=== PATIENT | male | born 1935 | race Caucasian/White ===

== ENCOUNTER 2020-10-03 00:16 | Inpatient (IN) | payer MEDICARE, BC, SELFPAY ==
[2020-10-03] VITALS (24 sets, daily range): BP systolic 117–197; BP diastolic 66–92; PULSE 66–114; RESP 12–27; TEMP 36.4–43; O2SAT 91–100; BMI 24.4; BMI 23.2
--- NOTE | 2020-10-03 00:17 | ECG_ITS ---
APPROVED REPORT Exam: Resting ECG HR:98 bpm ECG Measurements Heart Rate 98 AXES WY 144 P 48 QRSd 64 QRS 27 QT 352 T 62 QTc 449 Conclusion Normal sinus rhythm Normal ECG Electronically signed by : Carlton Bazzi, 10/03/2020 20:47:07
--- NOTE | 2020-10-03 00:28 | HMH.EDGENADL ---
ED Disposition Clinical Impression: SBO (small bowel obstruction) Disposition: Admitted As Inpatient Condition on Discharge: Good Instructions: DI for Diarrhea and Traveler's Diarrhea -- Adult, DI for Diarrhea and Traveler's Diarrhea -- Child, DI for Nausea -- Adult, DI for Nausea -- Child - Critical Care Critical Care Time: No Attestation: On , the high probability of a clinically significant, sudden or life threatening deterioration of the following system(s) required my full and direct attention, intervention and personal management. The time I documented below is in addition to time spent performing reported procedures but includes the following listed in this critical care notation. Medical Decision Making - Medical Records Medical records reviewed: Yes: I reviewed the patient's medical records. - [place] Inquiry Pt receiving controlled substance: No Vital Signs: 10/03/20 00:17 Temperature 98.8 F Temperature Source Oral Pulse Rate [Right] 98 H Respiratory Rate 16 Blood Pressure [Right Arm] 144/88 H Blood Pressure Mean [Right Arm] 106 Blood Pressure Source [Right Arm] Automatic Cuff Blood Pressure Position [Right Arm] Sitting 02 Sat by Pulse Oximetry 99 Oxygen Delivery Method Room Air - Lab Data Lab Results 10/03/20 00:15: WBC 14.1 H, RBC 5.17, Hgb 15.1, Hct 47.3, MCV 91.5, MCH 29.3, MCHC 32.0, RDW 13.3, Plt Count 545 H, MPV 7.3 L, Neut % (Auto) 76.0, Lymph % (Auto) 16.6, Yell % (Auto) 6.4, Eos % (Auto) 0.6, Baso % (Auto) 0.4, Neut # (Auto) 10.7 H, Lymph # (Auto) 2.4, Yell # (Auto) 0.9, Eos # (Auto) 0.1, Baso # (Auto) 0.1 10/03/20 00:15: Sodium 136, Potassium 4.4, Chloride 93 L, Carbon Dioxide 29, Anion Gap 18.4 H, BUN 38 H, Creatinine 1.90 H, Estimated Creat Clear 31, Estimated GFR 34 L, Est GFR ( Amer) 41 L, Glucose 161 H, Calcium 10.7 H, Total Bilirubin 0.8, AST 31, ALT 20, Alkaline Phosphatase 188 H, Total Protein 9.5 H, Albumin 5.1 H, Globulin 4.4 H, Albumin/Globulin Ratio 1.2, Lipase 80 Result diagrams: 10/03/20 00:15 10/03/20 00:15 Orders (Tests/Meds): ED MEDICATIONS Generic Name Dose Route Start Last Admin Trade Name Freq PRN Reason Stop Dose Admin Lactated Ringer's 1,000 mls @ 999 mls/hr 10/03/20 00:30 10/03/20 00:28 Lactated Ringer's 1000 Ml Bag IV 10/03/20 01:30 999 mls/hr .Q1H1M BRYAN Administration Lactated Ringer's 1,000 mls @ 999 mls/hr 10/03/20 00:45 10/03/20 00:37 Lactated Ringer's 1000 Ml Bag IV 10/03/20 01:45 Not Given .Q1H1M BRYAN Discontinued Medications Generic Name Dose Route Start Last Admin Trade Name Freq PRN Reason Stop Dose Admin Morphine Sulfate 4 mg 10/03/20 00:27 10/03/20 00:28 Morphine 4mg/Ml Syringe IV 10/03/20 00:28 4 mg ONCE ONE Administration Ondansetron HCl 4 mg 10/03/20 00:27 10/03/20 00:28 Ondansetron 4mg/2ml Vial IV 10/03/20 00:28 4 mg ONCE ONE Administration Ondansetron HCl 4 mg 10/03/20 00:31 10/03/20 00:37 Ondansetron 4mg/2ml Vial IV 10/03/20 00:32 Not Given ONCE ONE ORDERS Category Date Time Status CT abdomen pelvis wo con Stat Cat Scan 10/03/20 01:02 Taken Medical Decision Narrative: In summary this is an 84-year-old male presenting for abdominal pain. Patient has had symptoms for the past several days since Thursday. Patient states that he has not had a bowel movement or been passing gas. Due to his history of abdominal surgeries there is concern for small bowel obstruction. Patient had medications including bolus, IV morphine for pain control, IV ondansetron for nausea control ordered. Patient had CT abdomen with IV contrast as well as basic lab work ordered. On repeat assessment, patient was found to have an injury at 1.9, last creatinine not difficult to be obtained. Patient CT scan demonstrates small bowel obstruction with transition point in right lower quadrant. There is also concern for possible neoplasm with mass at the splenic flexure. Patient has no history
[2020-10-03 00:41] LABS: Basophils # 0.1 K/mm3 (0-0.2); Basophils % 0.4 % (0.1-2.0); Eosinophils # 0.1 K/mm3 (0.0-0.4); Eosinophils % 0.6 % (0.1-12.0); Hematocrit 47.3 % (42.0-52.0); Hemoglobin 15.1 g/dL (14.1-18.0); Lymphocytes # 2.4 K/mm3 (0.7-4.5); Lymphocytes % 16.6 % (10-50); Mean Corpuscular Hemoglobin 29.3 pg (27.0-31.2); Mean Corpuscular Volume 91.5 fl (80-94); Mean Platelet Volume 7.3 fl (7.4-10.4); Monocytes # 0.9 K/mm3 (0.1-1.0); Monocytes % 6.4 % (1.7-9.3); Neutrophils # 10.7 K/mm3 (1.8-7.8); Platelet Count 545 K/mm3 (142-424); Red Blood Count 5.17 M/mm3 (4.60-6.20); Red Cell Distribution Width 13.3 % (11.5-17.5); White Blood Count 14.1 K/mm3 (4.8-10.8)
[2020-10-03 00:46] LABS: Alanine Aminotransferase 20 U/L (12-78); Albumin Level 5.1 g/dl (3.5-5.0); Albumin/Globulin Ratio 1.2 (1.1-1.8); Alkaline Phosphatase 188 U/L (38-126); Anion Gap 18.4 mEq/L (5-15); Aspartate Amino Transferase 31 U/L (17-59); Bilirubin,Total 0.8 mg/dl (0.2-1.3); Blood Urea Nitrogen 38 mg/dl (9-20); Calcium 10.7 mg/dl (8.4-10.2); Carbon Dioxide 29 mmol/L (22.0-30.0); Chloride 93 mmol/L (98-107); Creatinine Clearance Estimated 31 mL/min (50-200); Estimated Glomerular Filt Rate 34 ml/min (>60); GFR (African American) 41 ML/MIN (>60); Globulin 4.4 g/dL (1.3-3.2); Glucose 161 mg/dl (74-100); Lipase 80 U/L (23-300); Potassium 4.4 mmoL/L (3.5-5.1); Sodium 136 mmol/L (136-145); Total Protein,Serum 9.5 g/dl (6.3-8.2)
--- NOTE | 2020-10-03 01:02 | CT_ITS ---
PROCEDURE: CT ABDOMEN PELVIS WO CON CLINICAL INDICATION: N/V w/ abd pain COMPARISON: No exams were available for comparison TECHNIQUE: Axial images obtained with sagittal and coronal reformats. All CT scans at the facility use one or more dose reduction, viz: automated exposure control, ma/kV adjustment per patient size (including targeted exams where dose is matched to indication, i.e. head), or iterative reconstruction technique. FINDINGS: Lower thorax: Emphysematous changes are seen in the lower lung paz, there is a large calcified granuloma posterior basilar segment right lower lobe. There is no pleural fluid. There is mild generalized cardiomegaly and there is coronary artery calcification. ABDOMEN: Liver: The liver is normal in size and there are no focal masses. There few scattered calcifications. Gallbladder: Nondistended. No radio opaque stones. Pancreas: No masses or peripancreatic fluid collections. Spleen: unremarkable Adrenals: unremarkable Kidneys/ureters: The kidneys are normal in size and no calculi and there is no obstructive uropathy. ABDOMEN & PELVIS: Stomach bowel: The stomach is prominently distended with fluid and there are scattered foci of high density possibly representing ingested antacids. There is a prominent diffuse dilatation of the duodenal sweep and proximal small bowel loops there are essentially normal caliber small bowel loops in the right lower quadrant and a suspected transition zone in the right lower quadrant consistent with a developing mechanical small bowel obstruction. There are postsurgical changes of the cecum probably secondary to a previous appendectomy. There is moderate stool in the cecum and ascending colon. The transverse and descending colon are somewhat decompressed. There is a possible mass splenic flexure of the colon with distortion of the lumen. There are scattered diverticuli of the lower descending and especially sigmoid colon but there is no evidence diverticulitis. Peritoneum: There is a small right inguinal hernia likely containing some fluid and or mesentery but no bowel.. Lymph nodes: No enlarged lymph nodes apparent. Vasculature: There is diffuse arthrosclerotic calcification of lower abdominal aorta there is no aneurysm. Bones: There are mild degenerate changes lower lumbar spine. PELVIS: Reproductive: unremarkable Bladder: Nondistended. No obvious stones or masses. The prostate is mildly enlarged. Appendix: Suspected appendectomy IMPRESSION: Fluid-filled dilated proximal and mid small bowel loops with probable transition zone right lower quadrant suggesting developing mechanical small bowel obstruction. 1. Possible mass splenic flexure of colon versus a focal area of colitis and I somewhat favor the former. 2. Prominent diverticulosis lower descending and especially sigmoid colon without definite evidence of diverticulitis. Dictated by: Dr. Avelino Seals MD 10/03/2020 08:41 Dr. Avelino Seals MD in [place] 10/03/2020 08:41
--- NOTE | 2020-10-03 01:47 | PC.NURSE ---
speaking with Dr. Ceron
--- NOTE | 2020-10-03 01:49 | PC.NURSE ---
Notified house of admission
--- NOTE | 2020-10-03 02:06 | XR_ITS ---
PROCEDURE: XR KUB CLINICAL INDICATION: NG tube placement COMPARISON: CT CT ABDOMEN PELVIS WO CON from 10/03/2020 FINDINGS: There is an NG tube seen entering the stomach. The lung paz are well expanded and appear clear of infiltrate. Cardiac size is normal. Scattered tiny foci of high density seen the stomach and distal small bowel likely due to ingested ant acids.. There are mildly dilated loops of small bowel in the mid lower abdomen. The lateral right side of the abdomen is cut off from the field of view. There is no evidence of free air. IMPRESSION: Mildly abnormal bowel gas pattern possibly secondary to a gastroenteritis Dictated by: Dr. Avelino Seals MD 10/03/2020 08:53 Dr. Avelino Seals MD in [place] 10/03/2020 08:53
[2020-10-03 02:25] LABS: Coronavirus 19 IgG Antibody Negative (Negative); Coronavirus 19 IgM Antibody Negative (Negative)
--- NOTE | 2020-10-03 04:32 | PC.NURSE ---
Pt is A&Ox4. Lung sounds clear t/o; tolerating RA appropriately. NG tube in place and remains on intermittent suctioning. NG tube is draining cloudy, dark green drainage at this time. Lower lt and rt quad hypoactive bowel sounds and active bowel sounds in upper lt and rt quads. Pt abdomen is distended and non-tender. Pt has not c/o abdominal pain thus far this shift. No other acute changes or complaints at this time.
--- NOTE | 2020-10-03 06:55 | XR_ITS ---
PROCEDURE: XR ACUTE ABDOMEN SERIES CLINICAL INDICATION: sbo COMPARISON: CT scan abdomen and pelvis 10/03/2020 FINDINGS: The chest film shows clear lung paz bilaterally. There is a NG tube seen descending the esophagus with the tip in the upper portion of the stomach directed toward the greater curvature. Abdominal films show more prominent gaseous dilatation of small bowel loops and seen on the film earlier in the day. There is moderate stool in the cecum. There is a Mata catheter at the base of the urinary bladder. There is no free air. IMPRESSION: Interval progression of dilated small bowel loops somewhat worrisome for developing mechanical small bowel obstruction Dictated by: Dr. Avelino Seals MD 10/03/2020 09:38 Dr. Avelino Seals MD in [place] 10/03/2020 09:38
--- NOTE | 2020-10-03 07:17 | P.CONPHA_ITS ---
[facility] Pharmacy VTE Monitoring - Patient Demographics Admission date: 10/03/20 Report Date: 10/03/20 Time: 07:17 Allergies/Adverse Reactions: Patient Allergies No Known Allergies Allergy (Verified 10/03/20 00:22) Height: 1.73 m Weight: 69.541 kg Patient Problems: Current Active Problems SBO (small bowel obstruction) (Acute) - VTE Risk Labs: VTE Related Lab Results Hgb 15.1 g/dL (14.1-18.0) 10/03/20 00:15 Hct 47.3 % (42.0-52.0) 10/03/20 00:15 Plt Count 545 K/mm3 (142-424) H 10/03/20 00:15 BUN 38 mg/dl (9-20) H 10/03/20 00:15 Creatinine 1.90 mg/dl (0.66-1.25) H 10/03/20 00:15 Estimated Creat Clear 31 mL/min (50-200) 10/03/20 00:15 Was VTE Risk Assessment Performed: Yes VTE Score: 3 VTE Risk Level: Low Risk Clinical Trial Participant: No - Prophylaxis VTE Prophylaxis Ordered?: Yes Types of VTE Prophylaxis: TEDS Knee High
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
[2020-10-03 08:05] LABS: Basophils # 0.1 K/mm3 (0-0.2); Basophils % 0.4 % (0.1-2.0); Eosinophils # 0.2 K/mm3 (0.0-0.4); Eosinophils % 1.4 % (0.1-12.0); Hematocrit 40.8 % (42.0-52.0); Lymphocytes % 15.1 % (10-50); Mean Corpuscular HGB Conc 31.3 g/dL (31.8-35.4); Mean Corpuscular Hemoglobin 28.3 pg (27.0-31.2); Mean Corpuscular Volume 90.4 fl (80-94); Monocytes # 1.1 K/mm3 (0.1-1.0); Monocytes % 8.1 % (1.7-9.3); Neutrophils # 9.9 K/mm3 (1.8-7.8); Platelet Count 454 K/mm3 (142-424); Red Blood Count 4.52 M/mm3 (4.60-6.20); Red Cell Distribution Width 13.1 % (11.5-17.5); White Blood Count 13.2 K/mm3 (4.8-10.8)
[2020-10-03 08:10] LABS: Chloride 99 mmol/L (98-107); Potassium 4.1 mmoL/L (3.5-5.1); Sodium 137 mmol/L (136-145)
[2020-10-03 08:13] LABS: Anion Gap 12.1 mEq/L (5-15); Blood Urea Nitrogen 36 mg/dl (9-20); Calcium 9.8 mg/dl (8.4-10.2); Carbon Dioxide 30 mmol/L (22.0-30.0); Creatinine Clearance Estimated 35 mL/min (50-200); Estimated Glomerular Filt Rate 42 ml/min (>60); GFR (African American) 50 ML/MIN (>60); Glucose 119 mg/dl (74-100)
[2020-10-03 08:21] LABS: Hemoglobin 12.8 g/dL (14.1-18.0)
--- NOTE | 2020-10-03 14:32 | ECG_ITS ---
APPROVED REPORT Exam: Resting ECG HR:76 bpm ECG Measurements Heart Rate 76 AXES AK 156 P 26 QRSd 58 QRS -6 QT 386 T 14 QTc 434 Conclusion Normal sinus rhythm Low voltage QRS Borderline ECG Electronically signed by : Carlton Bazzi, 10/03/2020 20:46:09
--- NOTE | 2020-10-03 14:44 | PC.NURSE ---
1440 Pt leaving department at this time with surgery personnel for procedure.
--- NOTE | 2020-10-03 17:12 | SUR.OPER ---
1645: Update to family in waiting room, per Dr Ceron, Tissue is very thin and fragile, working carefully, so this will be long procedure. Patient is stable. Will be out with another update in about an hour.
--- NOTE | 2020-10-03 17:49 | SUR.OPER ---
1746: Update to family-Resection of partial small bowel and partial greater omentum. Patient is stable. Procedure will continue for atleast another hour.
--- NOTE | 2020-10-03 17:58 | HMH.ANESCL ---
[facility] Anesthesia Checklist - Patient Identification Patient Identification: Arm Band, Verbal (Name & ) - Structural Data Admitted From: Inpatient Planned Operative Procedure/s: Exploratory laparotomy Consent for Planned Operative Procedure(s) Verified: Yes Verified Documents: Surgical Consent, History and Physical - NPO Status Verified Time NPO: 00:00 - Chart Verification Results Verified: CBC, BMP - Additional verifications Anesthesia Reactions: No - Airway Assessment C-Spine Mobility Assessed: Yes TMJ Mobility Assessed: Yes Dentition: Poor Dentition - Neurological Assessment Level of Consciousness: Awake, Alert, Appropriate, Follows Commands Hx Seizures: No Numbness or tingling in extremities: No - Anesthesia Plan Anesthesia Risk discussed: Yes Anesthesia Plan: Verified ASA Class: II (Emergent) Anesthesia Type: General [facility] History I have reviewed the patient's past medical history: Yes Medical History: Reports:: Cancer (skin cancer), Gastroesophageal Reflux Disease(GERD), Hyperlipidemia Denies:: Diabetes Mellitus Type 1, Diabetes Mellitus Type 2 *Have you ever received a pneumonia vaccine?: No *Have you received a flu vaccine this season?: Yes Other Medical History: Reports: Arthritis Anesthesia experience/problems:: none Other Surgeries: Yes: Cancer Surgery, Colostomy, Hernia Repair, Skin Cancer Excision Fractures: Yes (left hand, pinky finger) - *Social History Last grade of school completed: GED Smoking Status: Never smoker Alcohol Intake: never Substance Use Type: denies use *Occupational Status:: retired Housing: house Household Members: spouse *Travel in the last 8 weeks: None Family Hx:: Cancer, Coronary Artery Disease
--- NOTE | 2020-10-03 20:06 | HMH.ANESI ---
[facility] Anesthesia Record Part I Intake, IV Amount: 1,400 Estimated blood loss (mL): 75 Urine output (mL): 250 Blood Products used (#): none Blood Pressure: 184/88 SaO2: 94 Pulse Rate: 114 Respiratory Rate: 20 Temperature: 97.6 F Patient is:: Awake, Drowsy, Nasal O2, Stable Stable to PACU at:: 20:00
--- NOTE | 2020-10-03 20:16 | HMH.OPNOTE ---
Date of procedure: 10/03/20 Pre-op Diagnosis:: Small bowel obstruction Post-op Diagnosis:: Same Procedure performed:: Exploratory laparotomy Extensive lysis of adhesions Partial small bowel resection with primary anastomosis Surgeon:: Eusebio Ceron MD CLAIMS PROCESSOR:: Edson Villa Anesthesia: GETA Estimated blood loss (mL): 75 Operative findings:: Extensive dense adhesions throughout abdomen. The adhesions were exceptionally dense and no area was spared. The adhesions were between small bowel/anterior abdominal wall, small bowel/omentum, small bowel/colon, and small bowel/small bowel. Portion of mid small bowel exceptionally friable with some apparent mild early ischemic changes secondary to obstruction. Midportion of small bowel with spontaneous rents at time of minimal maneuvering with concomitant soilage with enteric contents 2 separate portions of fairly tight stricture in the distal small bowel through separate openings within omentum. Partial omentectomy completed Operative note:: After informed consent was obtained the patient was taken to the operating room and placed in the supine position. General anesthesia was induced and his abdomen was prepped and draped in a sterile fashion. A midline laparotomy incision was made through the prior scar. The abdominal cavity was carefully entered. Multiple loops of densely adherent small bowel were noted along the midline and throughout the entire abdomen. Extensive dissection with Metzenbaum scissors was utilized to carefully take down these loops. Careful blunt dissection was also utilized. Multiple interloop adhesions were also taken down as they were also exceptionally dense and no area was spared. Adhesions between the omentum and small bowel and adhesions between the small bowel and colon were also carefully taken down. A midportion of small bowel was somewhat friable and slightly dusky and this was felt to be most likely secondary to a combination of limited blood supply and need to maneuver the tissue as part of the adhesiolysis. A few separate areas of this friable tissue develop spontaneous rents with minimal maneuvering. Some enteric contents were spilled; however, this was quickly controlled with running suture. The abdominal cavity was thoroughly irrigated. As the dissection continued 2 separate areas of the distal small bowel were found to be additional points of obstruction (essentially internal hernias through omentum were noted). These were carefully taken down and the decision was made to proceed with a partial omentectomy as all of this tissue was quite friable/thickened. The Enseal device was utilized to complete the partial omentectomy. Dissection continued from the ligament of Treitz distally with no additional areas of injury or definitive additional areas of obstruction noted. A [id number] anastomosis utilizing a EMIL stapling device and a TX device for closure of the common otomy was completed at the small bowel resection site. Imbrication with interrupted 4-0 Nurolon was completed at the crotch and along the staple margin to improve hemostasis. No active bleeding was noted. The somewhat dilated small bowel was then returned to the abdominal cavity. Once again, the entire abdominal cavity was thoroughly irrigated with warm saline. Fascia was then reapproximated with #2 Novafil in a running fashion. The skin was partially closed with interrupted 4-0 nylon and 2 areas were left open for packing secondary to intra-abdominal spillage of enteric contents. Condition: stable Disposition: PACU Specimens:: Partial small bowel resection Partial greater omentum Complications:: No immediate
--- NOTE | 2020-10-03 23:22 | PC.NURSE ---
2114 BLENDING COORDINATOR pump set up, verified with maile Martin educated on only he is to push button and overdose risks
[2020-10-04] VITALS (16 sets, daily range): BP systolic 121–146; BP diastolic 57–77; PULSE 72–99; RESP 15–20; TEMP 36.6–37.2; O2SAT 92–98; BMI 24.1
[2020-10-04 03:17] LABS: Microscopic,Cath URINE MICROSCOPIC (MICROSCOPIC)
[2020-10-04 03:21] LABS: Appearance,Urine/Cath CLEAR (Clear); Bilirubin,Cath Negative (Negative); Blood, Urine/Cath 2+ (Negative); Color,Urine/Cath YELLOW (Yellow); Glucose,Urine/Cath (UA) Negative (Negative); Ketones,Urine/Cath Negative (Negative); Leukocyte Esterase,Cath Negative (Negative); Nitrate,Cath Negative (Negative); Protein,Urine/Cath 1+ (Negative); Specific Gravity, Urine/Cath 1.025 (1.005-1.030); Urobilinogen,Cath 0.2 EU/dl (0.2)
[2020-10-04 03:25] LABS: Bacteria,Urine/Cath TRACE /lpf; Mucus,Urine/Cath 1+ /lpf; WBC,Urine/Cath Occasional #/hpf (0-3)
--- NOTE | 2020-10-04 05:24 | PC.NURSE ---
pt has rested on and off since returning to floor, AxOx4, pt has been educated several times on the [employer] pump and how to use it, pt does verbalize understanding, inspiratory and expiratory rhonchi noted on auscultation of lungs, remains on 2L NC with O2 sats 91-96%, pt has not complained of SOA, N/V/D, HR has been 86-95, IS at bedside and pt has been educated on the use of it, dressing in place on abdomen, C/D/I, SCUDS in place
--- NOTE | 2020-10-04 05:36 | PC.NURSE ---
ritter catheter patent and draining cloudy dark urine
--- NOTE | 2020-10-04 06:11 | PC.NURSE ---
SHEEP FARM MANAGER pump cleared, pt had 13 completed, 9 denied, with 14 mg total being used, including 1 mg loading dose
[2020-10-04 06:44] LABS: Basophils % 0.2 % (0.1-2.0); Hematocrit 38.7 % (42.0-52.0); Hemoglobin 12.4 g/dL (14.1-18.0); Lymphocytes # 0.8 K/mm3 (0.7-4.5); Lymphocytes % 4.9 % (10-50); Mean Corpuscular HGB Conc 32.1 g/dL (31.8-35.4); Mean Corpuscular Hemoglobin 29.4 pg (27.0-31.2); Mean Corpuscular Volume 91.7 fl (80-94); Mean Platelet Volume 7.6 fl (7.4-10.4); Monocytes % 6.3 % (1.7-9.3); Neutrophils # 13.6 K/mm3 (1.8-7.8); Neutrophils % 88.5 % (37.0-80.0); Platelet Count 378 K/mm3 (142-424); Red Blood Count 4.22 M/mm3 (4.60-6.20); Red Cell Distribution Width 13.5 % (11.5-17.5); White Blood Count 15.4 K/mm3 (4.8-10.8)
[2020-10-04 06:47] LABS: Chloride 101 mmol/L (98-107); Potassium 4.4 mmoL/L (3.5-5.1); Sodium 137 mmol/L (136-145)
[2020-10-04 06:50] LABS: Anion Gap 10.4 mEq/L (5-15); Blood Urea Nitrogen 32 mg/dl (9-20); Carbon Dioxide 30 mmol/L (22.0-30.0); Creatinine Clearance Estimated 34 mL/min (50-200); Estimated Glomerular Filt Rate 39 ml/min (>60); GFR (African American) 47 ML/MIN (>60); Glucose 124 mg/dl (74-100)
[2020-10-04 06:51] LABS: Calcium 8.2 mg/dl (8.4-10.2)
[2020-10-04 06:52] LABS: MANUAL DIFFERENTIAL MANUAL DIFFERENTIAL (MANUAL DIFF)
--- NOTE | 2020-10-04 06:59 | HMH.GSPN ---
Subjective Narrative: feels OK Progress Note: A&P (1) SBO (small bowel obstruction) Status: Acute Assessment and plan: Overall, doing fairly well status post exploratory laparotomy, extensive lysis of adhesions, and partial small bowel resection. Continue nasogastric decompression Ambulate DC Mata (2) Abnormal CT scan, colon Status: Acute Exam Vital signs and Labs for Last 24 Hours: Temp Pulse Resp BP Pulse Ox 97.8 F 86 15 130/69 92 L 10/04/20 05:55 10/04/20 05:55 10/04/20 05:55 10/04/20 05:55 10/04/20 05:55 Laboratory Results - last 24 hr 10/03/20 07:45: WBC 13.2 H, RBC 4.52 L, Hgb 12.8 L D, Hct 40.8 L, MCV 90.4, MCH 28.3, MCHC 31.3 L, RDW 13.1, Plt Count 454 H, MPV 7.0 L, Neut % (Auto) 75.0, Lymph % (Auto) 15.1, [place] % (Auto) 8.1, Eos % (Auto) 1.4, Baso % (Auto) 0.4, Neut # (Auto) 9.9 H, Lymph # (Auto) 2.0, [place] # (Auto) 1.1 H, Eos # (Auto) 0.2, Baso # (Auto) 0.1 10/03/20 07:45: Sodium 137, Potassium 4.1, Chloride 99, Carbon Dioxide 30, Anion Gap 12.1, BUN 36 H, Creatinine 1.60 H, Estimated Creat Clear 35, Estimated GFR 42 L, Est GFR ( Amer) 50 L D, Glucose 119 H D, Calcium 9.8 10/04/20 03:10: Urine Color Yellow, Urine Appearance Clear, Urine pH 6.0, Ur Specific [place] 1.025, Urine Protein 1+, Urine Glucose (UA) Negative, Urine Ketones Negative, Urine Blood 2+, Urine Nitrate Negative, Urine Bilirubin Negative, Urine Urobilinogen 0.2, Ur Leukocyte Esterase Negative, Urine RBC 5-10, Urine WBC Occasional, Urine Bacteria Trace 10/04/20 06:13: WBC 15.4 H, RBC 4.22 L, Hgb 12.4 L, Hct 38.7 L, MCV 91.7, MCH 29.4, MCHC 32.1, RDW 13.5, Plt Count 378, MPV 7.6, Neut % (Auto) 88.5 H, Lymph % (Auto) 4.9 L, [place] % (Auto) 6.3, Eos % (Auto) 0.0 L, Baso % (Auto) 0.2, Neut # (Auto) 13.6 H, Lymph # (Auto) 0.8, [place] # (Auto) 1.0, Eos # (Auto) 0.0, Baso # (Auto) 0.0 10/04/20 06:13: Sodium 137, Potassium 4.4, Chloride 101, Carbon Dioxide 30, Anion Gap 10.4, BUN 32 H, Creatinine 1.70 H, Estimated Creat Clear 34, Estimated GFR 39 L, Est GFR ( Amer) 47 L, Glucose 124 H, Calcium 8.2 L D I & O for Last 24 hours: Intake & Output 10/01/20 10/02/20 10/03/20 10/04/20 11:59 11:59 11:59 11:59 Intake Total 409 / 409 2698 / 2698 Output Total 750 / 750 1650 / 1650 Balance -341 / -341 1048 / 1048 Weight 153 lb 5 oz 159 lb 4 oz - Constitutional no acute distress - *Routine Respiratory Exam Absent: respiratory distress - *Routine Cardiovascular Exam Present: RRR - *Routine Abdominal Exam Present: soft Comments: Dressing in place. No erythema.
[2020-10-04 09:01] LABS: Lymphocytes % 7 % (10-50); Monocytes % 4 % (2-9); Neutrophils % 81 % (42-76); Platelet Estimate Normal; RBC Morphology Normal; Total Cells Counted 100
--- NOTE | 2020-10-04 12:32 | PC.NURSE ---
NEW MORPHINE SYRINGE SET UP IN MANAGER NET PUMP Roman STEVENS RN.
--- NOTE | 2020-10-04 13:00 | PC.NURSE ---
PT WALKED FROM HIS BED TO ROOM 206 AND BACK TO HIS ROOM WITH A ROLLING WALKER AND STANDBY ASSIST. PT TOLERATED WELL.
--- NOTE | 2020-10-04 16:58 | PC.NURSE ---
PT WALKED FROM HIS BED TO ROOM 205 AND BACK WITH ROLLING WALKER AND STANDBY ASSIST. STEADY GAIT NOTED. PT TOLERATED WELL.
--- NOTE | 2020-10-04 17:38 | PC.NURSE ---
CLEARED HUMAN RESOURCES VICE PRESIDENT PUMP WITH Jitendra SCHRADER RN. 10.6MG CLEARED FROM PUMP.
--- NOTE | 2020-10-04 18:09 | PC.NURSE ---
A&OX4. PT HAS TOLERATED 2L NC WELL THROUGHOUT SHIFT. RESPIRATIONS REGULAR AND UNLABORED. LUNG SOUNDS BILATERALLY CLEAR. NO COUGH NOTED. PT WAS EDUCATED ON HOW TO USE INCENTIVE SPIROMETER AND ENCOURAGED TO USE IT 10 TIMES EVERY HOUR WHILE AWAKE. 700 NOTED THE PT'S BEST. ACTIVE BOWEL SOUNDS HEARD IN ALL 4 QUADRANTS. SOFT AND TENDER ABDOMEN. DRESSING NOTED TO ABDOMEN. CDI. HAND EDUCATIONAL ADVISER EQUAL. +2 PULSES NOTED THROUGHOUT. SCUDS IN PLACE. PT SAT UP TO THE CHAIR FOR ABOUT A HOUR TODAY. PT AMBULATED TWICE WITH THIS NURSE AND TOLERATED WELL. STEADY GAIT NOTED. NG TUBE IN PLACE WITH GREENISH YELLOW CONTENTS NOTED IN SUCTION CANISTER. ENDOCRINOLOGY NURSE PUMP IN PLACE. PT HAS REPORTED PAIN OF A 4-5 THROUGHOUT SHIFT. PT HASN'T NEEDED ANY ADDITIONAL PAIN MEDS THUS FAR. PT HAS TOLERATED ICE CHIPS WELL. PT HAD SEVERAL FAMILY MEMBERS VISIT TODAY. PT REPORTS NO BM OR FLATUS PASSED. PT IS CURRENTLY LYING IN BED RESTING. BED IN LOWEST POSITION. CALL LIGHT WITHIN REACH. VSS. WILL CONTINUE TO MONITOR.
[2020-10-05] VITALS (13 sets, daily range): BP systolic 117–155; BP diastolic 45–83; PULSE 66–100; RESP 16–20; TEMP 36.6–37.6; O2SAT 1–100; BMI 25.0
--- NOTE | 2020-10-05 05:18 | PC.NURSE ---
no acute changes since prior assessment, pt has rested on and off t/o shift, pain has been well controlled with LOGISTICS ADMINISTRATOR, dressing change completed, no redness noted to midline incision, IS at bedside and pt has been educated on using it, has remained on 2L NC t/o shift, O2 sats 92-100%, room air sat obtained and found to be 92%, lungs CTA, no complaints of SOA, N/V/D, BS active in upper quadrants and hypoactive in lower quadrants
--- NOTE | 2020-10-05 06:45 | PC.NURSE ---
COSTUME DIRECTOR pump cleared, pt received 15 mg, denied 8 times, also had 200 mL out from NG tube, brownish, greenish in color
[2020-10-05 06:48] LABS: Basophils % 0.1 % (0.1-2.0); Eosinophils # 0.1 K/mm3 (0.0-0.4); Eosinophils % 0.5 % (0.1-12.0); Hematocrit 34.9 % (42.0-52.0); Hemoglobin 11.2 g/dL (14.1-18.0); Lymphocytes % 9.3 % (10-50); Mean Corpuscular HGB Conc 32.1 g/dL (31.8-35.4); Mean Corpuscular Hemoglobin 29.6 pg (27.0-31.2); Mean Platelet Volume 7.3 fl (7.4-10.4); Monocytes # 0.6 K/mm3 (0.1-1.0); Monocytes % 5.1 % (1.7-9.3); Neutrophils # 9.5 K/mm3 (1.8-7.8); Platelet Count 334 K/mm3 (142-424); Red Cell Distribution Width 13.5 % (11.5-17.5); White Blood Count 11.2 K/mm3 (4.8-10.8)
[2020-10-05 06:52] LABS: MANUAL DIFFERENTIAL MANUAL DIFFERENTIAL (MANUAL DIFF)
[2020-10-05 06:55] LABS: Chloride 101 mmol/L (98-107); Potassium 4.1 mmoL/L (3.5-5.1); Sodium 135 mmol/L (136-145)
[2020-10-05 06:58] LABS: Anion Gap 8.1 mEq/L (5-15); Blood Urea Nitrogen 27 mg/dl (9-20); Carbon Dioxide 30 mmol/L (22.0-30.0); Creatinine Clearance Estimated 46 mL/min (50-200); Estimated Glomerular Filt Rate 53 ml/min (>60); GFR (African American) 64 ML/MIN (>60)
[2020-10-05 06:59] LABS: Calcium 8.4 mg/dl (8.4-10.2); Glucose 100 mg/dl (74-100)
[2020-10-05 07:04] LABS: Lymphocytes % 12 % (10-50); Monocytes % 5 % (2-9); Neutrophils % 74 % (42-76); Platelet Estimate Normal; RBC Morphology Normal; Total Cells Counted 100
--- NOTE | 2020-10-05 17:01 | P.PN_ITS ---
Subjective Narrative: Mr. Hutchins is an 84-year-old male status post exploratory laparotomy with enterolysis and small bowel resection. Today is postoperative day #2. Reports feeling relatively well. No nausea or emesis. NG tube remains in place with clear green aspirate. No flatus or bowel movement. No significant complaints. Progress Note: A&P (1) SBO (small bowel obstruction) Status: Acute (2) Abnormal CT scan, colon Status: Acute Assessment and Plan for All Diagnoses:: 1. Small bowel obstruction. Status post exploratory laparotomy with enterolysis and small bowel resection. Postoperative day #2. Doing well. Expect slow recovery of bowel function. NG tube to remain in place. Continue supportive postoperative care. Exam Vital signs and Labs for Last 24 Hours: Temp Pulse Resp BP Pulse Ox 97.9 F 100 H 20 148/83 H 98 10/05/20 15:18 10/05/20 15:18 10/05/20 15:18 10/05/20 15:18 10/05/20 15:18 Laboratory Results - last 24 hr 10/05/20 06:09: WBC 11.2 H D, RBC 3.80 L, Hgb 11.2 L, Hct 34.9 L, MCV 92.0, MCH 29.6, MCHC 32.1, RDW 13.5, Plt Count 334, MPV 7.3 L, Neut % (Auto) 85.0 H, Lymph % (Auto) 9.3 L, [place] % (Auto) 5.1, Eos % (Auto) 0.5, Baso % (Auto) 0.1, Neut # (Auto) 9.5 H, Lymph # (Auto) 1.0, [place] # (Auto) 0.6, Eos # (Auto) 0.1, Baso # (Auto) 0.0, Total Counted 100, Neutrophils % (Manual) 74, Band Neutrophils % 9.0 H, Lymphocytes % (Manual) 12, Monocytes % (Manual) 5, Platelet Estimate Normal, RBC Morphology Normal 10/05/20 06:09: Sodium 135 L, Potassium 4.1, Chloride 101, Carbon Dioxide 30, Anion Gap 8.1, BUN 27 H, Creatinine 1.30 H D, Estimated Creat Clear 46, Estimated GFR 53 L, Est GFR ( Amer) 64 D, Glucose 100, Calcium 8.4 I & O for Last 24 hours: Intake & Output 10/03/20 10/04/20 10/05/20 10/06/20 11:59 11:59 11:59 11:59 Intake Total 409 / 409 2698 / 2698 4332 / 4332 0 / 0 Output Total 750 / 750 1900 / 1900 1055 / 1055 500 / 500 Balance -341 / -341 798 / 798 3277 / 3277 -500 / -500 Weight 69.541 kg 72.235 kg 74.843 kg 75 kg - Constitutional Comments: Pleasant. No distress. - *Routine Abdominal Exam Comments: Soft. Dressing dry. Distended. Appropriately tender.
--- NOTE | 2020-10-05 17:46 | PC.NURSE ---
PATIENT A&O X4, LUNGS DIMINISHED, PULSES EQUAL. PATIENT ABDOMEN IS DISTENDED, PATIENT COMPLAINS OF NO PAIN WHEN ASSESSING ABDOMEN. THIS RN REMOVED OLD DRESSING, CLEANED WOUNDS WITH NS, PACKED BOTH OPEN WOUNDS WITH KERLIX SOAKED IN NS, COVERED WITH 4X4 AND MEDIPORE TAPE TO SECURE. PATIENT TOLERATED WELL. PATIENT HAS BEEN FATIQUED FOR MOST OF THIS RN SHIFT. PATIENT REFUSED AMBULATION. THIS RN EXPLAINED THE IMPORTANCE OF AMBULATION TO HELP WITH INTESTINE MOBILITY. THIS RN EDUCATED PATIENT THE IMPORTANCE OF USING HIS IS TO HELP PREVENT PNEUMONIA. PATIENT VERBALIZED AN UNDERSTANDING. NO NEW CONCERNS AT THIS TIME.
[2020-10-06] VITALS (18 sets, daily range): BP systolic 146–181; BP diastolic 62–95; PULSE 67–91; RESP 15–22; TEMP 36.6–37.3; O2SAT 91–97; BMI 25.1
--- NOTE | 2020-10-06 04:51 | PC.NURSE ---
Patient is resting comfortably in bed. Neuro: Alert x 5. No c/o pain. Pupils are equal, as are lining brusher and pulses. Cardiac: Patient has been normotensive. Sinus tach intermittently. Pulm: Patient transitioned to room air at roughly 0200 as he was satting 97% on 1 l. Currently satting 94%. Will encourage IS when patient wakes. GI: patient remains npo except ice chips. No n/v/d. No gas reported by patient. Bowel sounds are hypoactive. NG tube connected to low continuous suction, suction is at 75%. Gastric output for shift has been 125 cc of dark green bile. Amount noted on tape applied to canister. : Patient voids using urinal at bedside. Patient stands independently to use urinal. Roughly 300 cc of clear urine. Skin: dressing changed tonight. Wound is stapled with two areas that are left open and packed with gauze. Border dressing and tape applied. No drainage noted since dressing change. Pain pump in place. Patient has only used 1 mg of morphine this shift. Reports pain as a 2 at the worst. No issues or concerns with patient. Hes very pleasant and anxious to start getting better. Will continue to monitor patient.
--- NOTE | 2020-10-06 07:00 | PC.NURSE ---
MACHINE SHOP LEAD MAN pump cleared. Patient only us 1 mg of morphine during shift.
[2020-10-06 07:09] LABS: Basophils % 0.2 % (0.1-2.0); Eosinophils # 0.3 K/mm3 (0.0-0.4); Eosinophils % 2.2 % (0.1-12.0); Hematocrit 33.6 % (42.0-52.0); Hemoglobin 10.8 g/dL (14.1-18.0); Lymphocytes % 8.9 % (10-50); Mean Corpuscular HGB Conc 32.3 g/dL (31.8-35.4); Mean Corpuscular Hemoglobin 29.4 pg (27.0-31.2); Mean Corpuscular Volume 91.3 fl (80-94); Mean Platelet Volume 7.7 fl (7.4-10.4); Monocytes # 0.6 K/mm3 (0.1-1.0); Monocytes % 5.1 % (1.7-9.3); Neutrophils # 9.4 K/mm3 (1.8-7.8); Neutrophils % 83.6 % (37.0-80.0); Platelet Count 338 K/mm3 (142-424); Red Blood Count 3.68 M/mm3 (4.60-6.20); Red Cell Distribution Width 13.3 % (11.5-17.5); White Blood Count 11.3 K/mm3 (4.8-10.8)
[2020-10-06 07:19] LABS: Anion Gap 11.7 mEq/L (5-15); Blood Urea Nitrogen 19 mg/dl (9-20); Calcium 8.4 mg/dl (8.4-10.2); Carbon Dioxide 26 mmol/L (22.0-30.0); Chloride 100 mmol/L (98-107); Creatinine Clearance Estimated 51 mL/min (50-200); Estimated Glomerular Filt Rate 58 ml/min (>60); GFR (African American) 70 ML/MIN (>60); Glucose 76 mg/dl (74-100); Potassium 3.7 mmoL/L (3.5-5.1); Sodium 134 mmol/L (136-145)
--- NOTE | 2020-10-06 09:13 | HMH.GSPN ---
Subjective Patient reports: feels better, no flatus Narrative: POD#3 Progress Note: A&P (1) SBO (small bowel obstruction) Status: Acute Assessment and plan: Overall, doing well status post exploratory laparotomy with extensive lysis of adhesions and partial small bowel resection. Await return of bowel function Continue to increase ambulation Continue Zosyn for now secondary to intraoperative soilage with enteric contents (2) Abnormal CT scan, colon Status: Acute Exam Vital signs and Labs for Last 24 Hours: Temp Pulse Resp BP Pulse Ox 98.7 F 67 20 151/95 H 93 L 10/06/20 08:00 10/06/20 08:00 10/06/20 08:00 10/06/20 08:00 10/06/20 08:00 Laboratory Results - last 24 hr 10/06/20 06:17: WBC 11.3 H, RBC 3.68 L, Hgb 10.8 L, Hct 33.6 L, MCV 91.3, MCH 29.4, MCHC 32.3, RDW 13.3, Plt Count 338, MPV 7.7, Neut % (Auto) 83.6 H, Lymph % (Auto) 8.9 L, [place] % (Auto) 5.1, Eos % (Auto) 2.2, Baso % (Auto) 0.2, Neut # (Auto) 9.4 H, Lymph # (Auto) 1.0, [place] # (Auto) 0.6, Eos # (Auto) 0.3, Baso # (Auto) 0.0 10/06/20 06:17: Sodium 134 L, Potassium 3.7, Chloride 100, Carbon Dioxide 26, Anion Gap 11.7, BUN 19 D, Creatinine 1.20, Estimated Creat Clear 51, Estimated GFR 58 L, Est GFR ( Amer) 70, Glucose 76, Calcium 8.4 I & O for Last 24 hours: Intake & Output 10/03/20 10/04/20 10/05/20 10/06/20 11:59 11:59 11:59 11:59 Intake Total 409 / 409 2698 / 2698 4332 / 4332 1670 / 1670 Output Total 750 / 750 1900 / 1900 1055 / 1055 1450 / 1450 Balance -341 / -341 798 / 798 3277 / 3277 220 / 220 Weight 153 lb 5 oz 159 lb 4 oz 165 lb 166 lb - Constitutional no acute distress - *Routine Respiratory Exam Absent: respiratory distress - *Routine Cardiovascular Exam Present: RRR - *Routine Abdominal Exam Present: soft
--- NOTE | 2020-10-06 12:19 | PC.NURSE ---
CONTACTED DR. HIDALGO REGARDING ELEVATED BP 25MG METOPROLOL PO ORDERED AND FAXED TO PHARMACY. WILL CONTINUE TO MONITOR.
--- NOTE | 2020-10-06 13:52 | PC.NURSE ---
TOLERATED AMBULATION IN HALLWAY WITH STANDBY ASSISTANCE WITH STAFF. PT AMBULATED UP AND DOWN HALLWAY X2 WITH NO COMPLAINTS.
--- NOTE | 2020-10-06 13:58 | PC.NURSE ---
CONTACTED DR HIDALGO REGARDING PT SUSTAINED HYPERTENSION.
--- NOTE | 2020-10-06 19:23 | PC.NURSE ---
CLEARED DIVIDEND DEPOSIT ENTRY CLERK, 7.7 MG ADMIN, 350 NG TUBE OUTPUT
[2020-10-07] VITALS (17 sets, daily range): BP systolic 141–183; BP diastolic 60–93; PULSE 58–85; RESP 16–20; TEMP 36.6–37.1; O2SAT 91–95; BMI 24.9
--- NOTE | 2020-10-07 06:08 | PC.NURSE ---
pt has had no acute changes. vss. blood pressure remains elevated but has had improvement. no prn med given this shift for hypertension. NG is at 55 in the right nare. drainage is brown green. iv infusing per order. dressing was changed with minimal pain voiced. pt has been using chemistry associate and was educated on pain control. pt has been belching but has not passed any flatulence. vss. call light in reach. will continue to monitor
--- NOTE | 2020-10-07 07:00 | PC.NURSE ---
cleared microsoft exchange administrator pump 5 mg used this shift
--- NOTE | 2020-10-07 09:36 | PC.NURSE ---
PT IS NPO BUT IS BEING PROVIDED ICE CHIPS BY STAFF
--- NOTE | 2020-10-07 10:15 | HMH.GSPN ---
Subjective Patient reports: no new complaints, no flatus Narrative: Postop day #4 Progress Note: A&P (1) SBO (small bowel obstruction) Status: Acute Assessment and plan: Overall, doing fairly well status post exploratory laparotomy with partial small bowel resection. Await return of bowel function (2) Abnormal CT scan, colon Status: Acute Assessment and plan: Colonoscopy as soon as possible once he has recovered postoperatively. (3) Postoperative hypertension Status: Acute Assessment and plan: Continue labetalol for now. Continue to closely monitor. Exam Vital signs and Labs for Last 24 Hours: Temp Pulse Resp BP Pulse Ox 98.6 F 58 L 18 161/92 H 94 L 10/07/20 07:59 10/07/20 07:59 10/07/20 07:59 10/07/20 07:59 10/07/20 07:59 I & O for Last 24 hours: Intake & Output 10/04/20 10/05/20 10/06/20 10/07/20 11:59 11:59 11:59 11:59 Intake Total 2698 / 2698 4332 / 4332 1670 / 1670 0 / 0 Output Total 1900 / 1900 1055 / 1055 1900 / 1900 2155 / 2155 Balance 798 / 798 3277 / 3277 -230 / -230 -2155 / -2155 Weight 159 lb 4 oz 165 lb 166 lb 164 lb 7 oz Narrative: Labetalol ordered yesterday secondary to hypertension - Constitutional no acute distress - *Routine Respiratory Exam Absent: respiratory distress - *Routine Cardiovascular Exam Present: RRR - *Routine Abdominal Exam Present: soft
--- NOTE | 2020-10-07 11:36 | PC.NURSE ---
patient passed gas at this time
--- NOTE | 2020-10-07 11:59 | HMH.ACPN ---
Internal Medicine - PN: Subj *Date: 10/07/20 *Time: 11:59 Exam Vital signs and Labs for Last 24 Hours: Temp Pulse Resp BP Pulse Ox 97.9 F 64 20 166/71 H 93 L 10/07/20 11:35 10/07/20 11:35 10/07/20 11:35 10/07/20 11:35 10/07/20 11:35 I & O for Last 24 hours: Intake & Output 10/04/20 10/05/20 10/06/20 10/07/20 23:59 23:59 23:59 23:59 Intake Total 3749 / 3749 3551 / 3551 0 / 0 0 / 0 Output Total 1205 / 1305 2150 / 2150 1530 / 1530 1375 / 1375 Balance 2544 / 2444 1401 / 1401 -1530 / -1530 -1375 / -1375 Weight 72.235 kg 75 kg 75.296 kg 74.588 kg Assessment and Plan (1) SBO (small bowel obstruction) Status: Acute Category: Medical Code(s): K56.609 - Unspecified intestinal obstruction, unspecified as to partial versus complete obstruction (2) Abnormal CT scan, colon Status: Acute Category: Medical Code(s): R93.3 - Abnormal findings on diagnostic imaging of other parts of digestive tract (3) Postoperative hypertension Status: Acute Category: Medical Code(s): I97.3 - Postprocedural hypertension The patient's infection will respond to the chosen ABx?: Yes Is the patient receiving the right drug, dose, and route?: Yes Could a more targeted ABx be ordered?: No
--- NOTE | 2020-10-07 17:53 | PC.NURSE ---
HE IS AOX4, ABLE TO MAKE NEEDS KNOWN TO STAFF, MOTOR TEACHER STILL IN PLACE AT THIS TIME, PT STATES ADEQUATE PAIN CONTROL HAS BEEN MAINTAINED T/O SHIFT, HE HAS TOLERATED RA WELL WITH NO COMPLAINTS, HAS AMBULATED ORDERED, NG HAS BEEN REMOVED FROM WALL SUCTION PER MD ORDERS AND PLACED TO DRAINAGE BAG ORDERED BY DR HIDALGO, PT DENIES N/V, SMALL AMOUNT OF DRAINAGE NOTED IN DRAINAGE BAG, PT STATES THAT HE HAS PASSED GAS BUT NO BM THUS FAR, HE STATES THAT HE HAS ONLY MINIMAL PAIN WITH AMBULATION, STILL NO DRAINAGE NOTED TO DSG. PT BLOOD PRESSURE HAS REMAINED MILDLY HYPERTENSIVE T/O SHIFT, URINE OUTPUT HAS BEEN APPROPRIATE T/O SHIFT. NO NEEDS AT THIS TIME, WILL CONTINUE TO MONITOR.
[2020-10-08] VITALS (14 sets, daily range): BP systolic 145–188; BP diastolic 69–90; PULSE 62–82; RESP 16–20; TEMP 36.2–36.8; O2SAT 92–96; BMI 24.3
--- NOTE | 2020-10-08 04:33 | PC.NURSE ---
pt has had no acute changes. dressing was changed no s/s of infection noted. pt ambulated full length of hallway with walker and standby assist. ng 55 to right nare. ng to drainage bag with green-yellow drainage. iv patent and infusing per order. no residual noted with each residual check. no complaints of N/V. pt states having left shoulder neck discomfort and requested arthritis cream. a warm blanket was applied to the area and pt states relief from this. welding teacher vial changed this shift. vss. call light in reach. will continue to monitor pt condition
--- NOTE | 2020-10-08 05:37 | PC.NURSE ---
9.8 mg cleared from automation specialist
--- NOTE | 2020-10-08 07:09 | HMH.GSPN ---
Subjective Patient reports: no new complaints (Nasogastric tube to drain bag for 24 hours. No nausea or vomiting.), flatus Narrative: He states that he has had 2 episodes of flatus. Progress Note: A&P (1) SBO (small bowel obstruction) Status: Acute Assessment and plan: Overall, doing well status post exploratory laparotomy with extensive lysis of adhesions and partial small bowel resection. His expected postoperative ileus is improving. He has had 2 episodes of flatus. No nausea or emesis with nasogastric tube to drain bag. Remove nasogastric tube Clear liquids cautiously (2) Abnormal CT scan, colon Status: Acute Assessment and plan: Ongoing follow-up with colonoscopy once recovered from surgical intervention (3) Postoperative hypertension Status: Acute Assessment and plan: Slightly improved. As needed labetalol ordered; however, he is requiring less medication. Exam Vital signs and Labs for Last 24 Hours: Temp Pulse Resp BP Pulse Ox 98.0 F 76 17 157/83 H 96 10/08/20 06:00 10/08/20 06:00 10/08/20 06:00 10/08/20 06:00 10/08/20 06:00 I & O for Last 24 hours: Intake & Output 10/05/20 10/06/20 10/07/20 10/08/20 11:59 11:59 11:59 11:59 Intake Total 4332 / 4332 1670 / 1670 0 / 0 1295 / 1295 Output Total 1055 / 1055 1900 / 1900 2455 / 2455 1875 / 1875 Balance 3277 / 3277 -230 / -230 -2455 / -2455 -580 / -580 Weight 165 lb 166 lb 164 lb 7 oz 160 lb 9 oz - Constitutional no acute distress - *Routine Respiratory Exam Absent: respiratory distress - *Routine Cardiovascular Exam Present: RRR - *Routine Abdominal Exam Present: soft
[2020-10-08 07:12] LABS: Basophils # 0.1 K/mm3 (0-0.2); Basophils % 0.8 % (0.1-2.0); Eosinophils # 0.5 K/mm3 (0.0-0.4); Eosinophils % 5.4 % (0.1-12.0); Hematocrit 33.4 % (42.0-52.0); Hemoglobin 11.1 g/dL (14.1-18.0); Lymphocytes # 1.5 K/mm3 (0.7-4.5); Lymphocytes % 15.5 % (10-50); Mean Corpuscular HGB Conc 33.4 g/dL (31.8-35.4); Mean Corpuscular Hemoglobin 29.4 pg (27.0-31.2); Mean Corpuscular Volume 88.1 fl (80-94); Mean Platelet Volume 7.5 fl (7.4-10.4); Monocytes # 0.9 K/mm3 (0.1-1.0); Monocytes % 9.4 % (1.7-9.3); Neutrophils # 6.5 K/mm3 (1.8-7.8); Neutrophils % 68.9 % (37.0-80.0); Platelet Count 381 K/mm3 (142-424); Red Blood Count 3.79 M/mm3 (4.60-6.20); Red Cell Distribution Width 13.1 % (11.5-17.5); White Blood Count 9.5 K/mm3 (4.8-10.8)
[2020-10-08 07:34] LABS: Anion Gap 14.4 mEq/L (5-15); Blood Urea Nitrogen 12 mg/dl (9-20); Calcium 8.4 mg/dl (8.4-10.2); Carbon Dioxide 26 mmol/L (22.0-30.0); Chloride 98 mmol/L (98-107); Creatinine Clearance Estimated 59 mL/min (50-200); Estimated Glomerular Filt Rate 72 ml/min (>60); GFR (African American) 87 ML/MIN (>60); Glucose 60 mg/dl (74-100); Potassium 3.4 mmoL/L (3.5-5.1); Sodium 135 mmol/L (136-145)
[2020-10-08 07:47] LABS: Procalcitonin 3.81 ng/mL (0.0-2.0)
--- NOTE | 2020-10-08 14:21 | DIET.NUTRFU ---
Addendum entered by Alexandra Shah 10/10/20 16:16: Diet advanced to full liquid, pt tolerating well. Weight down 2#. No BM. Nutritional supplements added to diet order TID. Original Note: Pt reports he is feeling well and has been passing flatulence, no BM yet. Weight up 7# from admit. Pt has been educated on diet for post small bowel resection/SBO and encouraged to reach out with questions/concerns post dc. Continuing to monitor.
--- NOTE | 2020-10-08 20:05 | PC.NURSE ---
Pt has been pleasant and cooperative this shift. A&O X4. No complaints of pain. WINDOWS MIGRATION TECHNICIAN pump in place. 21 MG Morphine delivered this shift. Pt ambulates with stand-by assistance. Pt uses the urinal to void clear, yellow urine without issue. No BM. Lungs CTA. No edema noted. Abdominal incision packed X2 with saline soaked gauze, covered with ABD pad and tape. Pt has drank 240 ML of apple juice this shift and has had 240 ML of water. 20 G peripheral IV in the LT AC is patent and infusing LR @ 150 ML/HR. VSS. Call light within reach. Will continue to monitor.
[2020-10-09] VITALS (11 sets, daily range): BP systolic 138–178; BP diastolic 74–85; PULSE 70–87; RESP 16–20; TEMP 36.4–37; O2SAT 90–96; BMI 24.3
--- NOTE | 2020-10-09 06:28 | PC.NURSE ---
Pt has slept very little this shift, noted to have quirky and friendly affect. pt jokes easily with staff, nad noted pt has been sitting up in bed most of the shift. iv began leaking at appro 230 this am. new iv started by Solomon Mott RN 4 sticks total for attempt. pt has had no complaints this shift. will continue to monitor.
--- NOTE | 2020-10-09 08:25 | HMH.GSPN ---
Subjective Patient reports: no new complaints Narrative: Nasogastric tube out for 24 hours. No nausea or vomiting. He states that it feels like things are still moving through . Progress Note: A&P (1) SBO (small bowel obstruction) Status: Acute Assessment and plan: Overall, slowly improving status post exploratory laparotomy with extensive lysis of adhesions and partial small bowel resection. His postoperative ileus seems to be improving. Clear liquid diet (2) Abnormal CT scan, colon Status: Acute (3) Postoperative hypertension Status: Acute (4) Postoperative ileus Status: Acute Assessment and plan: Slowly improving Exam Vital signs and Labs for Last 24 Hours: Temp Pulse Resp BP Pulse Ox 98.2 F 79 17 148/81 H 94 L 10/09/20 02:00 10/09/20 02:00 10/09/20 02:00 10/09/20 02:00 10/09/20 02:00 I & O for Last 24 hours: Intake & Output 10/06/20 10/07/20 10/08/20 10/09/20 11:59 11:59 11:59 11:59 Intake Total 1670 / 1670 0 / 0 1295 / 1295 206 / 2061 Output Total 1900 / 1900 2455 / 2455 2675 / 2675 1670 / 1670 Balance -230 / -230 -2455 / -2455 -1380 / -1380 391 / 391 Weight 166 lb 164 lb 7 oz 160 lb 9 oz 160 lb 1 oz - Constitutional no acute distress - *Routine Respiratory Exam Absent: respiratory distress - *Routine Cardiovascular Exam Present: RRR - *Routine Abdominal Exam Present: soft
--- NOTE | 2020-10-09 12:57 | PC.NURSE ---
once collar stitcher pump is empty patient will start on the q1hour morphine as needed
--- NOTE | 2020-10-09 16:42 | PC.NURSE ---
patient has done well this shift. states pain stays at a 2. tolerated waling a lap in the orozco well. tolerated dressing change well. area looks good, inside of wound is pink. sutures remain intact. has had good urine output. tolerated his clear liquid diet well. noted a lot of belching. stomach slightly distended. bowel sounds active. vitals stable
--- NOTE | 2020-10-09 19:28 | PC.NURSE ---
cutter in pump was at 13.2mg between last night and today.
[2020-10-10] VITALS (11 sets, daily range): BP systolic 157–186; BP diastolic 63–91; PULSE 63–87; RESP 15–20; TEMP 36.4–37.1; O2SAT 95–100; BMI 23.8
--- NOTE | 2020-10-10 07:43 | PC.NURSE ---
Pt has had a good night, has not complained of pain. lung sounds are clear throughout, bowel sounds are hypoactive. dressing changed this am. pt tolerated well. 2 areas wet to dry packing. covered with dry 4x4 and abd pad. when asked about dressing changes at home, pt states that he will do them his self. will continue to monitor.
--- NOTE | 2020-10-10 08:21 | HMH.GSPN ---
Subjective Patient reports: no new complaints, flatus Progress Note: A&P (1) SBO (small bowel obstruction) Status: Acute Assessment and plan: Overall, continuing to improve status post exploratory laparotomy with lysis of adhesions and partial small bowel resection. (2) Abnormal CT scan, colon Status: Acute Assessment and plan: Continued evaluation as an outpatient (colonoscopy) (3) Postoperative hypertension Status: Acute Assessment and plan: Still requiring intermittent labetalol. Metoprolol 50 mg twice daily ordered (4) Postoperative ileus Status: Acute Assessment and plan: Continue to improve Full liquid diet Assessment and Plan for All Diagnoses:: Overall, the patient continues to improve. His diet is being slowly advanced. IV medications are being discontinued. Zosyn has been discontinued and he has now been placed on Augmentin secondary to intraoperative soilage. Antibiotic coverage will likely be discontinued soon. Although he does remain afebrile and his white blood cell count normalized, his procalcitonin was significantly elevated (partially secondary to postoperative state but possibly still secondary to ongoing infectious process). In addition, he will be on metoprolol 50 mg twice daily and close ongoing evaluation of his blood pressures will be ongoing. He may be stable for discharge by tomorrow if he continues to improve and shows toleration of diet advancement. Exam Vital signs and Labs for Last 24 Hours: Temp Pulse Resp BP Pulse Ox 97.7 F 73 17 167/77 H 95 10/10/20 06:00 10/10/20 06:00 10/10/20 06:00 10/10/20 08:10 10/10/20 06:00 I & O for Last 24 hours: Intake & Output 10/07/20 10/08/20 10/09/20 10/10/20 11:59 11:59 11:59 11:59 Intake Total 0 / 0 1295 / 1295 2061 / 2061 2250 / 2250 Output Total 2455 / 2455 2675 / 2675 1670 / 1670 2680 / 2680 Balance -2455 / -2455 -1380 / -1380 391 / 391 -430 / -430 Weight 164 lb 7 oz 160 lb 9 oz 160 lb 1 oz 157 lb 7 oz - Constitutional no acute distress - *Routine Respiratory Exam Absent: respiratory distress - *Routine Cardiovascular Exam Present: RRR - *Routine Abdominal Exam Present: soft
--- NOTE | 2020-10-10 16:31 | PC.NURSE ---
NO ACUTE CHANGES TO NOTE FROM PREVIOUS ASSESSMENT. TOLERATING FULL LIQUID DIET TODAY WITHOUT NASUEA. TAKING ORAL ANTIBIOTICS. 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 ORAL PAIN MEDICATIONS ORDERED BUT PATIENT HAS DENIED PAIN TODAY. USES URINAL WITHOUT ASSIST. IV 20 GAUGE IN LEFT HAND WITH D5 1/2 NS WITH 20 K+ INFUSING AT 50ML/HR. LUNGS SOUNDS ARE CLEAR. PATIENT REMAINS ALERT AND ORIENTED X4. DR HIDALGO PLANS TO DISCHARGE IN THE AM IF PATIENT CONDITION REMAINS THE SAME.
--- NOTE | 2020-10-10 19:02 | PC.NURSE ---
REPORT GIVEN TO Issa RODRIGUEZ RN
[2020-10-11] VITALS: BP 166/71; PULSE 61; RESP 20; TEMP 36.7; O2SAT 95
--- NOTE | 2020-10-11 00:40 | PC.NURSE ---
At start of shift during report it was noted that the pt iv was leaking. pt has had to have a new iv every evening the past 2 nights. pt is to possibly be dc in the am. called and spoke with Dr Ceron at 1950. Ok to leave iv out r/t pt requiring multiple sticks each time new iv to be started.
[2020-10-11 04:00] VITALS: BP 157/75; PULSE 60; RESP 16; TEMP 36.3; O2SAT 96
--- NOTE | 2020-10-11 05:54 | PC.NURSE ---
pt midline dressing changed at 0320. minimal serosanguinous drainage noted to packing when removed. new moistened kerlix packed in 2 open areas above and below umbilicus. dry 4x4 placed on top, then abd pad and secured in place by medipore tape. nad noted lungs are clear. pt has not requested/needed any pain medications this shift. pt has had 6 bm this shift per his count.
[2020-10-11 06:00] VITALS: BMI 23.3
--- NOTE | 2020-10-11 06:24 | HMH.GSPN ---
Subjective Patient reports: no new complaints, feels better, flatus, bowel movement Progress Note: A&P (1) SBO (small bowel obstruction) Status: Acute Assessment and plan: Doing well status post exploratory laparotomy with extensive lysis of adhesions and partial small bowel resection. (2) Abnormal CT scan, colon Status: Acute Assessment and plan: Colonoscopy near future (3) Postoperative hypertension Status: Acute Assessment and plan: Will continue metoprolol with outpatient prescription. He will follow-up with his primary care provider. (4) Postoperative ileus Status: Acute Assessment and plan: Resolved Assessment and Plan for All Diagnoses:: The patient is stable for discharge home today with close outpatient follow-up. He will complete a short course of Augmentin secondary to intraoperative soilage. Exam Vital signs and Labs for Last 24 Hours: Temp Pulse Resp BP Pulse Ox 97.4 F L 60 16 157/75 H 96 10/11/20 04:00 10/11/20 04:00 10/11/20 04:00 10/11/20 04:00 10/11/20 04:00 I & O for Last 24 hours: Intake & Output 10/08/20 10/09/20 10/10/20 10/11/20 11:59 11:59 11:59 11:59 Intake Total 1295 / 1295 2061 / 2061 3980 / 3980 360 / 360 Output Total 2675 / 2675 1670 / 1670 2680 / 2680 300 / 300 Balance -1380 / -1380 391 / 391 1300 / 1300 60 / 60 Weight 160 lb 9 oz 160 lb 1 oz 157 lb 7 oz - Constitutional no acute distress - *Routine Respiratory Exam Absent: respiratory distress - *Routine Cardiovascular Exam Present: RRR - *Routine Abdominal Exam Present: soft
--- NOTE | 2020-10-11 06:27 | HMH.DCSUM ---
General - General Admission date:: 10/03/20 Discharge date: 10/11/20 HPI HPI: HPI: This is an 84-year-old gentleman who presented to the emergency department overnight with increasing nausea and vomiting with abdominal bloating. He states that he has had no bowel movements or flatus for probably a little over 3 days now . No hematemesis. No bright red blood per rectum. He has a history of severe abdominal trauma requiring multiple operations including temporary colostomy with ultimate takedown. He states that he is otherwise very healthy . Forwarded from emergency department evaluation: General Adult HPI - General Chief complaint: Nausea/Vomiting/Diarrhea Stated complaint: nausea and vomiting Time Seen by Provider: 10/03/20 00:28 Mode of Arrival: EMS Limitations: No Limitations Description of Symptoms (Recalled from ER Triage Doc. by RN): Pt advises for the past two days he has been nauseated and vomiting. Also c/o stomach bloating. Advises he has a hx of stomach/colon issues - History of Present Illness HPI narrative: No, past medical history of abdominal surgeries secondary due to trauma, patient had an ostomy that was revised over a decade ago. Patient states he has been having abdominal pain and vomiting since Thursday. Patient denies any good oral intake since then, patient states pain progressively worsened which is why he called EMS. Patient states pain is improved little bit on arrival. Patient states he is not passing gas, last last bowel movement was 1 month ago. Patient denies any chest pain, shortness of breath, none diarrhea, fevers, chills, sick contact, recent travel. No history of bowel obstructions in the past. Patient has no other medical history not on any medications daily Hospital Course Hospital Course: The patient underwent exploratory laparotomy with extensive lysis of adhesions and partial small bowel resection. Please see operative report for detail. Postoperatively, he progressed fairly well. He did have fairly significant hypertension that was initially controlled with PRN labetalol. In addition, he was continued on Zosyn secondary to intraoperative soilage. He remained afebrile throughout the remainder of his stay. With the exception of the above-stated hypertension, his vital signs remained stable and normal. He did have an expected postoperative ileus that showed signs of resolution over the last 48 hours of his admission. His diet was slowly advanced and he was converted to metoprolol and Augmentin prior to discharge. Objective Vital signs: Temp Pulse Resp BP Pulse Ox 97.4 F L 60 16 157/75 H 96 10/11/20 04:00 10/11/20 04:00 10/11/20 04:00 10/11/20 04:00 10/11/20 04:00 no acute distress - *Routine HEENT Exam Head: Present: normocephalic Eye: Present: EOMI ENT: Present: mucous membranes moist - *Routine Neck Exam Present: full ROM - Routine Chest/Breast/Axilla Exam Chest wall: Absent: tenderness - *Routine Respiratory Exam Absent: respiratory distress - *Routine Cardiovascular Exam Present: RRR - *Routine Abdominal Exam Present: soft - *Routine Rectal Exam Patient deferred: visual exam - *Routine Exam Patient deferred: penile exam - *Routine Extremities Exam Present: full ROM. Absent: cyanosis, clubbing, edema - Routine Back/Spine/Pelvis Exam Back/Spine: Present: full ROM - *Routine Skin Exam Absent: erythema - *Routine Neurological Exam Present: alert - Routine Psychiatric Exam Present: normal affect DS: Diagnosis - Discharge Diagnosis (1) SBO (small bowel obstruction) Status: Acute (2) Abnormal CT scan, colon Status: Acute (3) Postoperative hypertension Status: Acute (4) Postoperative ileus Status: Acute Discharge Plan - Patient Discharge Instructions ACTIVITY: No heavy lifting
[2020-10-11 07:48] VITALS: BP 161/79; PULSE 65; RESP 18; TEMP 36.8; O2SAT 94
[2020-10-11 08:00] VITALS: O2SAT 94
--- NOTE | 2020-10-11 08:00 | PC.NURSE ---
PT ASSESSED AT THIS TIME. BILATERAL LUNG SOUNDS CLEAR. NO EDEMA NOTED. PT STATES THAT HE HAS HAD SEVERAL BM'S THROUGHOUT THE NIGHT. BOWEL SOUNDS NORMAL THROUGHOUT. PT DENIES ANY PAIN AT THIS TIME. PT DOES NOT FEEL LIKE EATING BREAKFAST AT THIS TIME DUE TO BELLY KINDLY UPSET FROM HAVING SO MANY BM'S. PT EATING ICE CHIPS AT THIS TIME. ABD DRESSING IS C/D/I. PLAN TO DC PT HOME TODAY. CALLED AND STATED THAT SHE WOULD LIKE TO BE HERE FOR PT TEACHING ON DRESSING CHANGE AND PLANS TO BE HERE AROUND 1330. WILL CONTINUE TO OBSERVE,
--- NOTE | 2020-10-11 13:00 | PC.NURSE ---
pt and family educated on dressing change at this time. pt tolerated dressing change well.
--- NOTE | 2020-10-11 13:18 | PC.NURSE ---
jose ivy at bedside talking to pt and family
--- NOTE | 2020-10-11 14:24 | PC.NURSE ---
pt wheeled off of unit at this time x1 [facility] staff
== END 2020-10-11 14:24 | disposition home or self-care (01) | DRG 326 ==
LOC: ER 01:50 → 2ND 02:05
PROVIDERS: Admitting Provider Surgery; Emergency Provider Emergency Medicine; PCP Family Medicine; Visit Provider Surgery
PROC: 0DB80ZZ Excision of Small Intestine, Open Approach (ICD-10-PCS; CPT 49000; principal; 2020-10-03 14:30)
DX: K56.50 Intestinal adhesions [bands], unspecified as to partial versus complete obstruction (principal); K63.1 Perforation of intestine (nontraumatic); E78.5 Hyperlipidemia, unspecified; K21.9 Gastro-esophageal reflux disease without esophagitis; R93.3 Abnormal findings on diagnostic imaging of other parts of digestive tract; I97.3 Postprocedural hypertension; Z82.49 Family history of ischemic heart disease and other diseases of the circulatory system; Z85.828 Personal history of other malignant neoplasm of skin
CPT/HCPCS: 44120; 49255; 49999; 36415; 74018; 74021; 74176; 80048; 80053; 81001; 83690; 84145; 85007; 85025; 86328; 88305; 88307; 90732; 93005; 94761; 96365; 96375; 99283; J2405; J2543

== ENCOUNTER → 2020-11-13 13:25 | Outpatient (CLI) | payer MEDICARE, BC, SELFPAY ==
[2020-11-13 16:31] LABS: Coronavirus 19 IgG Antibody Negative (Negative); Coronavirus 19 IgM Antibody Negative (Negative)
== END ==
PROVIDERS: Visit Provider Surgery
DX: Z01.812 Encounter for preprocedural laboratory examination (principal); Z20.822 Contact with and (suspected) exposure to COVID-19; Z12.11 Encounter for screening for malignant neoplasm of colon
CPT/HCPCS: 36415; 86328

== ENCOUNTER 2020-11-15 08:05 | Day surgery (SDC) | payer MEDICARE, BC, SELFPAY ==
[2020-11-13 11:01] VITALS: BMI 22.0
[2020-11-15 08:27] VITALS: BP 144/76; PULSE 65; RESP 18; TEMP 36.2; O2SAT 100
--- NOTE | 2020-11-15 08:40 | HMH.ANESCL ---
[facility] Anesthesia Checklist - Patient Identification Patient Identification: Arm Band, Verbal (Name & ) - Structural Data Admitted From: Home Planned Operative Procedure/s: colonoscopy Consent for Planned Operative Procedure(s) Verified: Yes Verified Documents: Surgical Consent - NPO Status Verified Time NPO: 00:00 - Additional verifications Anesthesia Reactions: No - Neurological Assessment Level of Consciousness: Awake Hx Seizures: No Numbness or tingling in extremities: No - Anesthesia Plan Anesthesia Risk discussed: Yes Anesthesia Plan: Verified ASA Class: II Anesthesia Type: MAC [facility] History I have reviewed the patient's past medical history: Yes Medical History: Reports:: Cancer, Gastroesophageal Reflux Disease(GERD), Hyperlipidemia, Hypertension Denies:: Diabetes Mellitus Type 1, Diabetes Mellitus Type 2, Internal Pacemaker, MRSA, Seizures *Have you ever received a pneumonia vaccine?: No *Have you received a flu vaccine this season?: No Other Medical History: Reports: Arthritis Anesthesia experience/problems:: none Other Surgeries: Yes: Cancer Surgery, Colostomy, Hernia Repair, Skin Cancer Excision. No: Pacemaker Amputation: No Fractures: Yes (left hand, pinky finger) - *Social History Last grade of school completed: High school graduate Smoking Status: Never smoker Alcohol Intake: never Alcohol Intake Frequency:: 0-2 drinks per day Substance Use Type: denies use *Occupational Status:: retired Housing: house Household Members: spouse *Travel in the last 8 weeks: None Family Hx:: Cancer, Coronary Artery Disease
[2020-11-15 09:17] VITALS: O2SAT 99
--- NOTE | 2020-11-15 09:41 | SUR.OPER ---
LIMITED COLONOSCOPY TO SPLENIC FLEXURE
[2020-11-15 09:45] VITALS: BP 85/37; PULSE 56; RESP 18; TEMP 36.1; O2SAT 97
--- NOTE | 2020-11-15 09:48 | HMH.SCOPE ---
- Procedure: Date: 11/15/20 Patient Date of :: 1935 Procedure Performed:: Colonoscopy with polypectomy and biopsy Indications:: Abnormal CT scan of colon (likely splenic flexure mass) Performing Provider:: Eusebio Ceron MD Referring Provider:: . Sedation:: Monitored anesthesia care Procedure:: After informed consent was obtained the patient was taken to the endoscopy suite. Sedation ensued after the patient was transferred to the left lateral decubitus position. Pulse, blood pressure, and oxygen saturation were monitored throughout the procedure. Digital rectal exam revealed no significant abnormality. The colonoscope was placed in position. The colonoscope was advanced to the splenic flexure where a circumferential friable mass with associated luminal narrowing was encountered. The colonoscope could not easily traverse the splenic flexure and the decision was made to forego further attempts. Multiple biopsies were obtained. The distal margin was marked with tattoo ink. An additional polyp at 45 cm was removed by way of cold biopsy forceps. Sigmoid diverticulosis confirmed. The colonoscope was carefully removed and the patient was transferred to recovery in stable condition. Please see findings and specimens below for detail. Findings:: Somewhat enlarged slightly nodular prostate with no dominant or fixed mass lesion Sigmoid diverticulosis Circumferential splenic flexure mass as stated above Polyp at 45 cm Specimens:: Multiple biopsies of splenic flexure mass Polyp at 45 cm Recommendations:: Due to the patient's significant past surgical history including exploratory laparotomy for trauma with colostomy, subsequent colostomy takedown, and recent exploratory laparotomy with partial small bowel resection for small bowel obstruction...he wishes to be referred to a tertiary care center for further management. Complications:: No immediate Estimated blood obtained (mL): 1
[2020-11-15 09:55] VITALS: BP 93/40; PULSE 56; RESP 18; O2SAT 96
[2020-11-15 10:06] VITALS: BP 119/78; PULSE 55; RESP 18; O2SAT 100
[2020-11-15 10:16] VITALS: BP 137/80; PULSE 60; RESP 18; O2SAT 100
== END 2020-11-15 10:17 | disposition home or self-care (01) ==
LOC: OUTP 08:07
PROVIDERS: PCP Family Medicine; Visit Provider Surgery
PROC: 0DJD8ZZ Inspection of Lower Intestinal Tract, Via Natural or Artificial Opening Endoscopic (ICD-10-PCS; CPT 45380; principal; 2020-11-15 09:30)
DX: K63.89 Other specified diseases of intestine (principal); K63.5 Polyp of colon; K57.30 Diverticulosis of large intestine without perforation or abscess without bleeding; N40.0 Benign prostatic hyperplasia without lower urinary tract symptoms; Z85.828 Personal history of other malignant neoplasm of skin; K21.9 Gastro-esophageal reflux disease without esophagitis; I10 Essential (primary) hypertension; E78.5 Hyperlipidemia, unspecified; M19.90 Unspecified osteoarthritis, unspecified site; Z80.9 Family history of malignant neoplasm, unspecified; Z82.49 Family history of ischemic heart disease and other diseases of the circulatory system; Z79.899 Other long term (current) drug therapy
CPT/HCPCS: 45380; 88305

== ENCOUNTER → 2020-11-21 08:44 | Outpatient (CLI) | payer MEDICARE, BC, SELFPAY ==
[2020-11-21 09:06] LABS: Blood Urea Nitrogen 17 mg/dl (9-20); Estimated Glomerular Filt Rate 49 ml/min (>60); GFR (African American) 59 ML/MIN (>60)
--- NOTE | 2020-11-21 09:06 | CT_ITS ---
PROCEDURE: CT ABDOMEN PELVIS W CON CLINICAL INDICATION: COLON CA Recent colon cancer diagnosis. Feels bloated. Had bowel surgery 8 weeks ago. COMPARISON: CT CT ABDOMEN PELVIS WO CON from 10/03/[address] CHEST W CON from 11/21/2020 TECHNIQUE: IV Contrast: 75ML Isovue 370 Oral Contrast None Axial images obtained with sagittal and coronal reformats. All CT scans at the facility use one or more dose reduction, viz: automated exposure control, ma/kV adjustment per patient size (including targeted exams where dose is matched to indication, i.e. head), or iterative reconstruction technique. FINDINGS: LOWER THORAX: Refer to chest CT for chest findings. ABDOMEN & PELVIS: There is no intraperitoneal free air. There is no intraperitoneal free fluid. There are staple lines in the proximal ascending colon secondary to prior partial right colectomy. Additional staple line is present and small bowel at the anterior margin of the peritoneal cavity. Mild intraperitoneal fat stranding is present adjacent to this area as well as in the anterior left mid abdomen, likely postsurgical. There is a moderate amount of stool throughout the remainder of the ascending colon and the transverse colon. There is a transition point at the splenic flexure there is prominent wall thickening and stranding at the splenic flexure immediately proximal to the transition zone. There is eccentric localized wall thickening at the splenic flexure. Differential considerations include early scar formation versus focal infection or postsurgical related change. There is extensive severe diverticulosis throughout the sigmoid colon. There is no CT evidence of perforated diverticulitis however early or intramural diverticulitis may not be visualized on CT. There is redemonstration of a 1 centimeter cystic or cystic and mucinous pancreatic head lesion. MRI of the pancreas with and without contrast to include MRCP is recommended. The remaining solid abdominal organs have an unremarkable appearance. There is moderate prostatic enlargement. There is mild diffuse urinary bladder wall thickening probable AA is secondary to the enlarged prostate gland. There is intermediate density in the right spermatic cord. This could represent an incompletely descended right testicle. Correlate clinically. Scrotal ultrasound could be obtained if clinically indicated. There is atherosclerotic calcification scattered in the aorta and branch vessels. The remaining major abdominal and pelvic vasculature is unremarkable. IMPRESSION: 1. Postsurgical findings with adjacent residual fat stranding. 2. Stool field prominent transverse and proximal colon with transition point at abnormal appearing colon at the splenic flexure with focal fat stranding and wall thickening. Differential includes postsurgical change, focal infectious change, however focal ischemia could be considered. This area was dilated on 10/03/2020 study but without localized stranding. 3. 1 centimeter pancreatic cystic in mucinous lesion. Pancreatic protocol MRI with and without contrast to include MRCP images is recommended. Four. Severe sigmoid diverticulosis. Five. Moderate prostate enlargement. Dictated by: Isa Pulido MD 11/21/2020 11:06 Isa Pulido MD in [place] 11/21/2020 11:06
--- NOTE | 2020-11-21 09:06 | CT_ITS ---
PROCEDURE: CT CHEST W CON CLINCAL INDICATION: Recent colon cancer diagnosis. Feeling bloated. Had bowel surgery 8 weeks ago COMPARISON: Partial visualization of the lower lungs on CT CT ABDOMEN PELVIS WO CON from 10/03/2020 TECHNIQUE: IV Contrast: 75ml Isovue 370 Axial images obtained with sagittal and coronal reformats. All CT scans at the facility use one or more dose reduction, viz: automated exposure control, ma/kV adjustment per patient size (including targeted exams where dose is matched to indication, i.e. head), or iterative reconstruction technique. FINDINGS: There are 2 small areas of fatty thickening of the pleura incidentally noted in the left posterior pleural space. Two small areas of thickening noted along the left major fissure. Calcified granuloma and calcified mediastinal and hilar lymph nodes are incidentally noted. There is no infiltrate. There are no suspicious nodules. Thyroid gland is small but otherwise unremarkable. There is no suspicious thoracic adenopathy. The major thoracic vasculature is unremarkable. There are scattered coronary artery atherosclerotic calcifications. A 1 centimeter cystic or cystic and mucinous lesion is visible in the pancreatic head. Pancreatic MR with and without contrast and MRCP is recommended for further evaluation. And there is stranding of the intraperitoneal fat surrounding splenic flexure of the colon. Partial visualization of the upper abdomen reveals no additional significant abnormalities. There are scattered degenerative changes in the skeleton. There are no suspicious bone lesions. IMPRESSION: 1. A 1 centimeter cystic in mucinous pancreatic head lesion. Pancreatic MRI with and without contrast to include MRCP is recommended for further evaluation. 2. Stranding of the intraperitoneal fat surrounding the splenic flexure of the colon of uncertain etiology or significance, correlate clinically. 3. No chest lesions suspicious for metastatic disease. Dictated by: Isa Pulido 11/21/2020 10:42 Isa Pulido in [place] 11/21/2020 10:42
== END ==
PROVIDERS: PCP Family Medicine; Visit Provider Surgery
DX: C18.9 Malignant neoplasm of colon, unspecified (principal)
CPT/HCPCS: 36415; 71260; 74177; 82565; 84520; Q9967

== ENCOUNTER → 2020-11-26 11:05 | Outpatient (CLI) | payer MEDICARE, BC, SELFPAY | PROVIDERS: PCP Family Medicine; Visit Provider Surgery | DX: Z20.822 Contact with and (suspected) exposure to COVID-19 (principal) | CPT/HCPCS: U0003 ==

== ENCOUNTER → 2021-02-14 11:07 | Outpatient (CLI) | payer MEDICARE, BC, SELFPAY ==
[2021-02-14 11:34] LABS: Basophils # 0.1 K/mm3 (0-0.2); Basophils % 1.3 % (0.1-2.0); Eosinophils # 0.3 K/mm3 (0.0-0.4); Eosinophils % 4.3 % (0.1-12.0); Hematocrit 38.4 % (42.0-52.0); Hemoglobin 12.3 g/dL (14.1-18.0); Lymphocytes # 2.7 K/mm3 (0.7-4.5); Lymphocytes % 36.5 % (10-50); Mean Corpuscular HGB Conc 31.9 g/dL (31.8-35.4); Mean Corpuscular Hemoglobin 28.6 pg (27.0-31.2); Mean Corpuscular Volume 89.4 fl (80-94); Mean Platelet Volume 7.4 fl (7.4-10.4); Monocytes # 0.6 K/mm3 (0.1-1.0); Neutrophils # 3.7 K/mm3 (1.8-7.8); Neutrophils % 49.9 % (37.0-80.0); Platelet Count 376 K/mm3 (142-424); Red Cell Distribution Width 14.7 % (11.5-17.5); White Blood Count 7.4 K/mm3 (4.8-10.8)
[2021-02-14 12:36] LABS: Alanine Aminotransferase 18 U/L (12-78); Albumin Level 4.3 g/dl (3.5-5.0); Albumin/Globulin Ratio 1.5 (1.1-1.8); Alkaline Phosphatase 118 U/L (38-126); Aspartate Amino Transferase 22 U/L (17-59); Bilirubin,Total 0.3 mg/dl (0.2-1.3); Blood Urea Nitrogen 27 mg/dl (9-20); Calcium 9.7 mg/dl (8.4-10.2); Carbon Dioxide 28 mmol/L (22.0-30.0); Chloride 106 mmol/L (98-107); Estimated Glomerular Filt Rate 48 ml/min (>60); GFR (African American) 59 ML/MIN (>60); Globulin 2.9 g/dL (1.3-3.2); Glucose 100 mg/dl (74-100); Sodium 140 mmol/L (136-145); Total Protein,Serum 7.2 g/dl (6.3-8.2)
== END ==
PROVIDERS: Visit Provider Internal Medicine Medical Oncology
DX: C18.9 Malignant neoplasm of colon, unspecified (principal)
CPT/HCPCS: 36415; 80053; 85025

== ENCOUNTER → 2021-03-07 12:13 | Outpatient (CLI) | payer MEDICARE, BC, SELFPAY ==
[2021-03-07 12:36] LABS: Basophils % 0.5 % (0.1-2.0); Eosinophils # 0.2 K/mm3 (0.0-0.4); Eosinophils % 2.8 % (0.1-12.0); Hematocrit 37.2 % (42.0-52.0); Lymphocytes # 2.3 K/mm3 (0.7-4.5); Lymphocytes % 28.2 % (10-50); Mean Corpuscular HGB Conc 32.3 g/dL (31.8-35.4); Mean Corpuscular Hemoglobin 29.1 pg (27.0-31.2); Mean Corpuscular Volume 90.2 fl (80-94); Monocytes # 0.8 K/mm3 (0.1-1.0); Monocytes % 9.5 % (1.7-9.3); Neutrophils # 4.7 K/mm3 (1.8-7.8); Platelet Count 346 K/mm3 (142-424); Red Blood Count 4.12 M/mm3 (4.60-6.20); Red Cell Distribution Width 16.8 % (11.5-17.5)
[2021-03-07 13:43] LABS: Chloride 101 mmol/L (98-107); Potassium 4.7 mmoL/L (3.5-5.1); Sodium 138 mmol/L (136-145)
[2021-03-07 13:46] LABS: Alanine Aminotransferase 15 U/L (12-78); Albumin Level 4.5 g/dl (3.5-5.0); Albumin/Globulin Ratio 1.6 (1.1-1.8); Alkaline Phosphatase 108 U/L (38-126); Anion Gap 15.7 mEq/L (5-15); Aspartate Amino Transferase 21 U/L (17-59); Bilirubin,Total 0.3 mg/dl (0.2-1.3); Blood Urea Nitrogen 22 mg/dl (9-20); Carbon Dioxide 26 mmol/L (22.0-30.0); Estimated Glomerular Filt Rate 53 ml/min (>60); GFR (African American) 64 ML/MIN (>60); Globulin 2.9 g/dL (1.3-3.2); Total Protein,Serum 7.4 g/dl (6.3-8.2)
[2021-03-07 13:47] LABS: Calcium 9.4 mg/dl (8.4-10.2); Glucose 98 mg/dl (74-100)
== END ==
PROVIDERS: Visit Provider Internal Medicine Medical Oncology
DX: C18.9 Malignant neoplasm of colon, unspecified (principal)
CPT/HCPCS: 36415; 80053; 85025

== ENCOUNTER 2021-03-13 11:39 | Emergency (ER) | payer MEDICARE, BC, SELFPAY ==
--- NOTE | 2021-03-13 11:38 | ECG_ITS ---
APPROVED REPORT Exam: Resting ECG HR:82 bpm ECG Measurements Heart Rate 82 AXES MN 170 P 59 QRSd 60 QRS 55 QT 354 T 68 QTc 413 Conclusion Normal sinus rhythm Low voltage QRS Borderline ECG Electronically signed by : Carlton Bazzi, 03/16/2021 11:07:59
[2021-03-13 11:40] VITALS: BP 127/56; PULSE 79; RESP 20; TEMP 36.8; O2SAT 97; BMI 23.3
--- NOTE | 2021-03-13 11:46 | HMH.EDGENADL ---
ED Disposition Clinical Impression: Orthostatic hypotension Disposition: Home, Self-Care Condition on Discharge: Good Instructions: DI for Orthostatic Hypotension Additional Instructions: Stop taking Flomax (tamsulosin) Drink plenty of fluids. Rise slowly and with support when going from laying or sitting position to standing. See Dr. Nieves in his office tomorrow, he will recheck your hemoglobin level. Return to the emergency department if worsening dizziness or if fainting occurs Referrals: Mike Nieves MD [Primary Care Provider] - - Critical Care Critical Care Time: No Attestation: On , the high probability of a clinically significant, sudden or life threatening deterioration of the following system(s) required my full and direct attention, intervention and personal management. The time I documented below is in addition to time spent performing reported procedures but includes the following listed in this critical care notation. Medical Decision Making - [place] Inquiry Pt receiving controlled substance: No Vital Signs: 03/13/21 11:40 03/13/21 12:03 03/13/21 12:16 Temperature 98.3 F Temperature Source Oral Pulse Rate 92 H Pulse Rate [Left Radial] 79 Pulse Rate [Orthostatic Lying] 79 Pulse Rate [Orthostatic Sitting] 89 Pulse Rate [Orthostatic Standing] 99 H Respiratory Rate 20 19 Blood Pressure 121/68 Blood Pressure [Orthostatic Lying Right Arm] 127/56 L Blood Pressure [Orthostatic Sitting] 115/60 Blood Pressure [Orthostatic Standing] 84/50 L Blood Pressure [Right Arm] 127/56 L Blood Pressure Mean [Right Arm] 79 Blood Pressure Source [Right Arm] Automatic Cuff Blood Pressure Position [Right Arm] Sitting 02 Sat by Pulse Oximetry 97 99 Oxygen Delivery Method Room Air - Lab Data Lab Results 03/13/21 11:41: WBC 3.3 L, RBC 2.75 L, Hgb 8.2 L, Hct 24.7 L, MCV 89.9, MCH 29.9, MCHC 33.2, RDW 17.3, Plt Count 160, MPV 7.8, Neut % (Auto) 73.5, Lymph % (Auto) 15.1, Whitfield % (Auto) 7.1, Eos % (Auto) 4.1, Baso % (Auto) 0.1, Neut # (Auto) 2.4, Lymph # (Auto) 0.5 L, Whitfield # (Auto) 0.2, Eos # (Auto) 0.1, Baso # (Auto) 0.0 03/13/21 11:41: Sodium 130 L, Potassium 4.3, Chloride 97 L, Carbon Dioxide 20 L, Anion Gap 17.3 H, BUN 28 H, Creatinine 1.90 H, Estimated Creat Clear 28, Estimated GFR 34 L, Est GFR ( Amer) 41 L, Glucose 144 H, Calcium 8.7, Troponin I < 0.01 03/13/21 12:30: Stool Occult Blood Negative Result diagrams: 03/13/21 11:41 03/13/21 11:41 Orders (Tests/Meds): ED MEDICATIONS Discontinued Medications Generic Name Dose Route Start Last Admin Trade Name Freq PRN Reason Stop Dose Admin Sodium Chloride 1,000 ml 03/13/21 12:02 03/13/21 12:07 Sodium Chloride 0.9% 1000ml Bag IV 03/13/21 12:03 1,000 ml BOLUS ONE Administration ORDERS Category Date Time Status Troponin I Q3H Lab 03/13/21 15:00 Ordered Troponin I Q3H Lab 03/13/21 18:00 Ordered - Radiology Data #1 Image(s): Chest Image Reviewed: Yes I have reviewed radiologist's interpretation PROCEDURE: XR CHEST 2V CLINICAL HISTORY: dizziness COMPARISON: CT CT CHEST W CON from 11/21/2020 FINDINGS: The cardiomediastinal silhouette and pulmonary vascularity are within normal limits. There is calcified granuloma in the right lung base posteriorly. The remaining lungs are clear. Mild kyphosis unchanged. Mild degenerative changes of the shoulders. IMPRESSION: No acute findings. Dictated by: Jarrod Duncan MD 03/13/2021 12:23 Jarrod Duncan MD in [place] 03/13/2021 12:23 - ECG Data Tracing #1 EKG interpreted by Jonathan Culver MD: Rhythm: sinus Rate: 82 Garrett: normal Ectopy: none Conduction: normal ST Segment Changes: none T Wave Changes: none Q Waves: none No evidence of acute ischemia or injury Normal electrocardiogram - Physician Consults Physician Consulted: Lizbeth Time: 13:10 Reason -: Pt condition Comment/Response: Recomm
--- NOTE | 2021-03-13 11:52 | XR_ITS ---
PROCEDURE: XR CHEST 2V CLINICAL HISTORY: dizziness COMPARISON: CT CT CHEST W CON from 11/21/2020 FINDINGS: The cardiomediastinal silhouette and pulmonary vascularity are within normal limits. There is calcified granuloma in the right lung base posteriorly. The remaining lungs are clear. Mild kyphosis unchanged. Mild degenerative changes of the shoulders. IMPRESSION: No acute findings. Dictated by: Jarrod Duncan MD 03/13/2021 12:23 Jarrod Duncan MD in [place] 03/13/2021 12:23
[2021-03-13 12:03] VITALS: BP 115/60; BP 127/56; BP 84/50; PULSE 79; PULSE 89; PULSE 99
[2021-03-13 12:09] LABS: Chloride 97 mmol/L (98-107); Sodium 130 mmol/L (136-145)
[2021-03-13 12:10] LABS: Potassium 4.3 mmoL/L (3.5-5.1)
[2021-03-13 12:12] LABS: Blood Urea Nitrogen 28 mg/dl (9-20); Creatinine Clearance Estimated 28 mL/min (50-200); Estimated Glomerular Filt Rate 34 ml/min (>60); GFR (African American) 41 ML/MIN (>60)
[2021-03-13 12:13] LABS: Anion Gap 17.3 mEq/L (5-15); Calcium 8.7 mg/dl (8.4-10.2); Carbon Dioxide 20 mmol/L (22.0-30.0); Glucose 144 mg/dl (74-100)
[2021-03-13 12:16] VITALS: BP 121/68; PULSE 92; RESP 19; O2SAT 99
[2021-03-13 12:16] LABS: Basophils % 0.1 % (0.1-2.0); Eosinophils # 0.1 K/mm3 (0.0-0.4); Eosinophils % 4.1 % (0.1-12.0); Hematocrit 24.7 % (42.0-52.0); Hemoglobin 8.2 g/dL (14.1-18.0); Lymphocytes # 0.5 K/mm3 (0.7-4.5); Lymphocytes % 15.1 % (10-50); Mean Corpuscular HGB Conc 33.2 g/dL (31.8-35.4); Mean Corpuscular Hemoglobin 29.9 pg (27.0-31.2); Mean Corpuscular Volume 89.9 fl (80-94); Mean Platelet Volume 7.8 fl (7.4-10.4); Monocytes # 0.2 K/mm3 (0.1-1.0); Monocytes % 7.1 % (1.7-9.3); Neutrophils # 2.4 K/mm3 (1.8-7.8); Neutrophils % 73.5 % (37.0-80.0); Platelet Count 160 K/mm3 (142-424); Red Blood Count 2.75 M/mm3 (4.60-6.20); Red Cell Distribution Width 17.3 % (11.5-17.5); White Blood Count 3.3 K/mm3 (4.8-10.8)
[2021-03-13 12:30] VITALS: BP 115/59; RESP 20
[2021-03-13 12:36] LABS: Troponin I < 0.01 ng/ml (0.00-0.034)
[2021-03-13 13:00] VITALS: BP 130/59; RESP 15
[2021-03-13 13:00] LABS: Occult Blood,Stool Negative (Negative)
--- NOTE | 2021-03-13 13:08 | PC.NURSE ---
placed call to Dr Nieves, Dr Culver speaking to him
[2021-03-13 13:35] VITALS: BP 130/59; PULSE 81; RESP 15; TEMP 36.8; O2SAT 99
== END 2021-03-13 13:37 | disposition home or self-care (01) ==
PROVIDERS: Emergency Provider Emergency Medicine; PCP Family Medicine
DX: I95.2 Hypotension due to drugs (principal); T44.6X5A Adverse effect of alpha-adrenoreceptor antagonists, initial encounter; E78.5 Hyperlipidemia, unspecified; I10 Essential (primary) hypertension; Z79.899 Other long term (current) drug therapy; C18.9 Malignant neoplasm of colon, unspecified; C61 Malignant neoplasm of prostate
CPT/HCPCS: 71046; 80048; 82272; 84484; 85025; 93005; 99282; G0328

== ENCOUNTER → 2021-03-21 12:30 | Outpatient (CLI) | payer MEDICARE, BC, SELFPAY ==
[2021-03-21 13:01] LABS: Basophils # 0.1 K/mm3 (0-0.2); Basophils % 0.6 % (0.1-2.0); Eosinophils # 0.2 K/mm3 (0.0-0.4); Eosinophils % 2.9 % (0.1-12.0); Hemoglobin 11.6 g/dL (14.1-18.0); Lymphocytes # 2.8 K/mm3 (0.7-4.5); Lymphocytes % 37.4 % (10-50); Mean Corpuscular HGB Conc 31.3 g/dL (31.8-35.4); Mean Corpuscular Hemoglobin 29.2 pg (27.0-31.2); Mean Corpuscular Volume 93.2 fl (80-94); Mean Platelet Volume 6.9 fl (7.4-10.4); Monocytes # 0.8 K/mm3 (0.1-1.0); Monocytes % 10.7 % (1.7-9.3); Neutrophils # 3.7 K/mm3 (1.8-7.8); Neutrophils % 48.3 % (37.0-80.0); Platelet Count 418 K/mm3 (142-424); Red Blood Count 3.97 M/mm3 (4.60-6.20); Red Cell Distribution Width 17.3 % (11.5-17.5); White Blood Count 7.6 K/mm3 (4.8-10.8)
[2021-03-21 13:33] LABS: Chloride 104 mmol/L (98-107); Sodium 139 mmol/L (136-145)
[2021-03-21 13:36] LABS: Alanine Aminotransferase 27 U/L (12-78); Albumin Level 4.3 g/dl (3.5-5.0); Albumin/Globulin Ratio 1.6 (1.1-1.8); Alkaline Phosphatase 116 U/L (38-126); Aspartate Amino Transferase 28 U/L (17-59); Bilirubin,Total 0.3 mg/dl (0.2-1.3); Blood Urea Nitrogen 19 mg/dl (9-20); Carbon Dioxide 25 mmol/L (22.0-30.0); Estimated Glomerular Filt Rate 58 ml/min (>60); GFR (African American) 70 ML/MIN (>60); Globulin 2.7 g/dL (1.3-3.2)
[2021-03-21 13:37] LABS: Calcium 8.9 mg/dl (8.4-10.2); Glucose 116 mg/dl (74-100)
== END ==
PROVIDERS: Visit Provider Family Medicine
DX: R42 Dizziness and giddiness (principal); D64.9 Anemia, unspecified
CPT/HCPCS: 36415; 80053; 85025

== ENCOUNTER → 2021-03-28 13:42 | Outpatient (CLI) | payer MEDICARE, BC, SELFPAY ==
[2021-03-28 14:27] LABS: Chloride 103 mmol/L (98-107)
[2021-03-28 14:28] LABS: Sodium 140 mmol/L (136-145)
[2021-03-28 14:30] LABS: Alanine Aminotransferase 19 U/L (12-78); Albumin Level 4.3 g/dl (3.5-5.0); Alkaline Phosphatase 142 U/L (38-126); Aspartate Amino Transferase 27 U/L (17-59); Bilirubin,Total 0.4 mg/dl (0.2-1.3); Blood Urea Nitrogen 24 mg/dl (9-20); Carbon Dioxide 28 mmol/L (22.0-30.0); Estimated Glomerular Filt Rate 48 ml/min (>60); GFR (African American) 59 ML/MIN (>60)
[2021-03-28 14:31] LABS: Albumin/Globulin Ratio 1.5 (1.1-1.8); Calcium 9.3 mg/dl (8.4-10.2); Globulin 2.9 g/dL (1.3-3.2); Glucose 105 mg/dl (74-100); Total Protein,Serum 7.2 g/dl (6.3-8.2)
[2021-03-28 14:32] LABS: Basophils # 0.1 K/mm3 (0-0.2); Basophils % 0.7 % (0.1-2.0); Eosinophils # 0.2 K/mm3 (0.0-0.4); Eosinophils % 1.6 % (0.1-12.0); Hematocrit 36.7 % (42.0-52.0); Hemoglobin 12.1 g/dL (14.1-18.0); Lymphocytes # 2.9 K/mm3 (0.7-4.5); Lymphocytes % 29.8 % (10-50); Mean Corpuscular HGB Conc 32.8 g/dL (31.8-35.4); Mean Corpuscular Hemoglobin 29.3 pg (27.0-31.2); Mean Corpuscular Volume 89.3 fl (80-94); Mean Platelet Volume 7.4 fl (7.4-10.4); Monocytes % 10.5 % (1.7-9.3); Neutrophils # 5.6 K/mm3 (1.8-7.8); Neutrophils % 57.4 % (37.0-80.0); Platelet Count 476 K/mm3 (142-424); Red Blood Count 4.12 M/mm3 (4.60-6.20); Red Cell Distribution Width 17.9 % (11.5-17.5); White Blood Count 9.7 K/mm3 (4.8-10.8)
== END ==
PROVIDERS: Visit Provider Internal Medicine Medical Oncology
DX: C18.9 Malignant neoplasm of colon, unspecified (principal)
CPT/HCPCS: 36415; 80053; 85025

== ENCOUNTER → 2021-04-25 11:44 | Outpatient (CLI) | payer MEDICARE, BC, SELFPAY ==
[2021-04-25 12:22] LABS: Basophils # 0.1 K/mm3 (0-0.2); Basophils % 0.8 % (0.1-2.0); Eosinophils # 0.2 K/mm3 (0.0-0.4); Eosinophils % 2.9 % (0.1-12.0); Hematocrit 37.4 % (42.0-52.0); Lymphocytes # 2.1 K/mm3 (0.7-4.5); Lymphocytes % 28.1 % (10-50); Mean Corpuscular HGB Conc 32.1 g/dL (31.8-35.4); Mean Corpuscular Hemoglobin 30.9 pg (27.0-31.2); Mean Corpuscular Volume 96.4 fl (80-94); Mean Platelet Volume 7.5 fl (7.4-10.4); Monocytes # 0.7 K/mm3 (0.1-1.0); Monocytes % 9.2 % (1.7-9.3); Neutrophils # 4.3 K/mm3 (1.8-7.8); Platelet Count 399 K/mm3 (142-424); Red Blood Count 3.88 M/mm3 (4.60-6.20); White Blood Count 7.4 K/mm3 (4.8-10.8)
[2021-04-25 12:46] LABS: Alanine Aminotransferase 15 U/L (12-78); Albumin Level 4.3 g/dl (3.5-5.0); Albumin/Globulin Ratio 1.5 (1.1-1.8); Alkaline Phosphatase 150 U/L (38-126); Anion Gap 15.9 mEq/L (5-15); Aspartate Amino Transferase 26 U/L (17-59); Bilirubin,Total 0.7 mg/dl (0.2-1.3); Blood Urea Nitrogen 29 mg/dl (9-20); Calcium 9.4 mg/dl (8.4-10.2); Carbon Dioxide 26 mmol/L (22.0-30.0); Chloride 104 mmol/L (98-107); Estimated Glomerular Filt Rate 45 ml/min (>60); GFR (African American) 54 ML/MIN (>60); Globulin 2.9 g/dL (1.3-3.2); Glucose 94 mg/dl (74-100); Iron 177 ug/dL (49-181); Potassium 4.9 mmoL/L (3.5-5.1); Sodium 141 mmol/L (136-145); Total Protein,Serum 7.2 g/dl (6.3-8.2)
[2021-04-25 13:03] LABS: 25-OH Vitamin D, Total 28.7 ng/mL (30-100)
== END ==
PROVIDERS: Visit Provider Family Medicine
DX: D50.9 Iron deficiency anemia, unspecified (principal); E55.9 Vitamin D deficiency, unspecified; Z79.899 Other long term (current) drug therapy
CPT/HCPCS: 36415; 80053; 82306; 83540; 85025

== ENCOUNTER → 2021-05-09 11:34 | Outpatient (CLI) | payer MEDICARE, BC, SELFPAY | PROVIDERS: Visit Provider Urology | DX: R33.9 Retention of urine, unspecified (principal) | CPT/HCPCS: 87086; 87088 ==

== ENCOUNTER → 2021-05-17 11:58 | Outpatient (CLI) | payer MEDICARE, BC, SELFPAY ==
[2021-05-17 12:48] LABS: Basophils # 0.1 K/mm3 (0-0.2); Basophils % 0.7 % (0.1-2.0); Eosinophils # 0.3 K/mm3 (0.0-0.4); Eosinophils % 3.7 % (0.1-12.0); Hematocrit 36.6 % (42.0-52.0); Hemoglobin 12.1 g/dL (14.1-18.0); Lymphocytes # 2.4 K/mm3 (0.7-4.5); Lymphocytes % 30.5 % (10-50); Mean Corpuscular HGB Conc 33.1 g/dL (31.8-35.4); Mean Corpuscular Hemoglobin 33.2 pg (27.0-31.2); Mean Corpuscular Volume 100.2 fl (80-94); Mean Platelet Volume 7.5 fl (7.4-10.4); Monocytes # 0.6 K/mm3 (0.1-1.0); Monocytes % 7.3 % (1.7-9.3); Neutrophils # 4.5 K/mm3 (1.8-7.8); Neutrophils % 57.8 % (37.0-80.0); Platelet Count 383 K/mm3 (142-424); Red Blood Count 3.65 M/mm3 (4.60-6.20); White Blood Count 7.8 K/mm3 (4.8-10.8)
[2021-05-17 13:19] LABS: Chloride 102 mmol/L (98-107)
[2021-05-17 13:20] LABS: Potassium 4.7 mmoL/L (3.5-5.1); Sodium 140 mmol/L (136-145)
[2021-05-17 13:22] LABS: Alanine Aminotransferase 15 U/L (12-78); Alkaline Phosphatase 140 U/L (38-126); Anion Gap 16.7 mEq/L (5-15); Aspartate Amino Transferase 23 U/L (17-59); Bilirubin,Total 0.7 mg/dl (0.2-1.3); Blood Urea Nitrogen 30 mg/dl (9-20); Carbon Dioxide 26 mmol/L (22.0-30.0); Estimated Glomerular Filt Rate 39 ml/min (>60); GFR (African American) 47 ML/MIN (>60)
[2021-05-17 13:23] LABS: Albumin Level 4.4 g/dl (3.5-5.0); Albumin/Globulin Ratio 1.6 (1.1-1.8); Calcium 9.5 mg/dl (8.4-10.2); Globulin 2.7 g/dL (1.3-3.2); Glucose 155 mg/dl (74-100); Total Protein,Serum 7.1 g/dl (6.3-8.2)
== END ==
PROVIDERS: Visit Provider Internal Medicine Medical Oncology
DX: C18.9 Malignant neoplasm of colon, unspecified (principal)
CPT/HCPCS: 36415; 80053; 85025

== ENCOUNTER → 2021-05-23 15:16 | Outpatient (CLI) | payer MEDICARE, BC, SELFPAY | PROVIDERS: Visit Provider Urology | DX: R35.0 Frequency of micturition (principal) | CPT/HCPCS: 87086 ==

== ENCOUNTER 2021-06-01 14:05 | Inpatient (IN) | payer MEDICARE, BC, SELFPAY ==
[2021-06-01] VITALS (9 sets, daily range): BP systolic 123–152; BP diastolic 53–74; PULSE 74–96; RESP 16–20; TEMP 36.7–36.8; O2SAT 96–99; BMI 22.6; BMI 22.0
--- NOTE | 2021-06-01 14:26 | ECG_ITS ---
APPROVED REPORT Exam: Resting ECG HR:94 bpm ECG Measurements Heart Rate 94 AXES MI 150 P 53 QRSd 60 QRS 33 QT 340 T 59 QTc 425 Conclusion Normal sinus rhythm Normal ECG Electronically signed by : Carlton Bazzi MD 06/02/2021 17:08:23
--- NOTE | 2021-06-01 14:47 | XR_ITS ---
PROCEDURE INFORMATION: Exam: XR Pelvis Exam date and time: 06/01/2021 2:47 PM Age: 85 years old Clinical indication: Pelvic pain; Patient HX: Fell today; Additional info: Falls TECHNIQUE: Imaging protocol: XR pelvis. Views: 1 or 2 view. COMPARISON: CT ABDOMEN PELVIS W CON 11/21/2020 9:26 AM FINDINGS: Bones/joints: Degenerative changes of the lower lumbar spine, SI joints and both hips are present. There is no evidence of acute fracture. There is no evidence of joint malalignment or dislocation. Soft tissues: There are no soft tissue masses or fluid collections. IMPRESSION: 1. Degenerative changes of the lower lumbar spine, SI joints and both hips are present. 2. No evidence of acute fracture. 3. No evidence of acute dislocation.
--- NOTE | 2021-06-01 14:47 | XR_ITS ---
PROCEDURE INFORMATION: Exam: XR Chest Exam date and time: 06/01/2021 2:47 PM Age: 85 years old Clinical indication: Patient HX: Dizziness, syncope TECHNIQUE: Imaging protocol: XR of the chest. Views: 1 view. COMPARISON: CR XR CHEST 2V 03/13/2021 12:03 PM FINDINGS: Lungs: The lungs are hyperinflated, consistent with underlying small airways disease. Pleural spaces: There are no pleural effusions present. Heart/Mediastinum: Unremarkable. No cardiomegaly. Bones/joints: The thoracic spine demonstrates mild degenerative changes at multiple levels. Soft tissues: Linear density overlies the left lower lung and is most likely related to overlapping soft tissues. IMPRESSION: 1. Linear density overlies the left lower lung and is most likely related to overlapping soft tissues. However, pneumothorax cannot be completely excluded based on this examination. Follow-up expiratory views of the chest recommended. 2. The lungs are hyperinflated, consistent with underlying small airways disease.
--- NOTE | 2021-06-01 14:47 | XR_ITS ---
PROCEDURE INFORMATION: Exam: XR Lumbosacral Spine Exam date and time: 06/01/2021 2:47 PM Age: 85 years old Clinical indication: Injury or trauma; Fall; Blunt trauma (contusions or hematomas); Injury date: 06/01/21; Additional info: Falls TECHNIQUE: Imaging protocol: XR of the lumbosacral spine. Views: 2 or 3 views. COMPARISON: CR XR PELVIS 1-2V 06/01/2021 3:10 PM FINDINGS: Bones/joints: There is no evidence of acute fracture. The lumbar spine demonstrates moderate degenerative changes at multiple levels. Disc space narrowing and bilateral neural foraminal narrowing noted at L3-L4, L4-L5 and L5-S1. Soft tissues: Unremarkable. Gastrointestinal tract: A large amount of stool is noted throughout the colon. IMPRESSION: 1. No evidence of acute fracture. 2. A large amount of stool is noted throughout the colon. 3. The lumbar spine demonstrates moderate degenerative changes at multiple levels. 4. Disc space narrowing and bilateral neural foraminal narrowing noted at L3-L4, L4-L5 and L5-S1.
[2021-06-01 14:56] LABS: Microscopic, Urine URINE MICROSCOPIC (MICROSCOPIC)
[2021-06-01 14:57] LABS: Appearance,Urine CLOUDY (Clear); Bilirubin,Urine Negative (Negative); Blood, Urine 3+ (Negative); Color,Urine YELLOW (Yellow); Glucose,Urine (UA) Negative (Negative); Ketones,Urine Negative (Negative); Leukocyte Esterase,Urine 2+ (Negative); Nitrate,Urine Negative (Negative); Protein,Urine 3+ (Negative); Specific Gravity, Urine 1.025 (1.005-1.030); Urobilinogen,Urine 0.2 EU/dl (0.2)
[2021-06-01 15:14] LABS: Bacteria,Urine 1+ /lpf; RBC,Urine 20-50 #/hpf (0-3); Squamous Epithelial Cell,Urine Occasional #/hpf (0-5)
[2021-06-01 15:18] LABS: Basophils % 0.4 % (0.1-2.0); Eosinophils % 0.4 % (0.1-12.0); Hematocrit 37.4 % (42.0-52.0); Hemoglobin 12.1 g/dL (14.1-18.0); Lymphocytes # 1.1 K/mm3 (0.7-4.5); Lymphocytes % 9.6 % (10-50); Mean Corpuscular HGB Conc 32.2 g/dL (31.8-35.4); Mean Corpuscular Hemoglobin 34.4 pg (27.0-31.2); Mean Corpuscular Volume 106.8 fl (80-94); Mean Platelet Volume 8.5 fl (7.4-10.4); Monocytes # 0.9 K/mm3 (0.1-1.0); Monocytes % 7.8 % (1.7-9.3); Neutrophils # 9.2 K/mm3 (1.8-7.8); Neutrophils % 81.8 % (37.0-80.0); Platelet Count 364 K/mm3 (142-424); Red Cell Distribution Width 18.1 % (11.5-17.5); White Blood Count 11.2 K/mm3 (4.8-10.8)
[2021-06-01 15:29] LABS: Chloride 100 mmol/L (98-107); Potassium 5.8 mmoL/L (3.5-5.1); Sodium 135 mmol/L (136-145)
[2021-06-01 15:32] LABS: Alanine Aminotransferase 32 U/L (12-78); Albumin Level 4.5 g/dl (3.5-5.0); Albumin/Globulin Ratio 1.2 (1.1-1.8); Alkaline Phosphatase 123 U/L (38-126); Anion Gap 19.8 mEq/L (5-15); Aspartate Amino Transferase 91 U/L (17-59); Bilirubin,Total 1.8 mg/dl (0.2-1.3); Blood Urea Nitrogen 58 mg/dl (9-20); Calcium 9.1 mg/dl (8.4-10.2); Carbon Dioxide 21 mmol/L (22.0-30.0); Creatinine Clearance Estimated 15 mL/min (50-200); Estimated Glomerular Filt Rate 16 ml/min (>60); GFR (African American) 20 ML/MIN (>60); Globulin 3.9 g/dL (1.3-3.2); Glucose 112 mg/dl (74-100); Total Protein,Serum 8.4 g/dl (6.3-8.2)
[2021-06-01 15:40] LABS: Lactic Acid 2.2 mmol/L (0.7-2.1)
[2021-06-01 15:44] LABS: Troponin I 0.02 ng/ml (0.00-0.034)
--- NOTE | 2021-06-01 15:48 | HMH.EDSYNC ---
ED Disposition Clinical Impression: Acute urinary retention, SIOBHAN (acute kidney injury), Syncope, near UTI (urinary tract infection) Qualifiers: Urinary tract infection type: site unspecified Hematuria presence: without hematuria Qualified Code(s): N39.0 - Urinary tract infection, site not specified Disposition: Admitted as Observation Condition on Discharge: Good - Critical Care Critical Care Time: No Attestation: On 06/01/21, the high probability of a clinically significant, sudden or life threatening deterioration of the following system(s) required my full and direct attention, intervention and personal management. The time I documented below is in addition to time spent performing reported procedures but includes the following listed in this critical care notation. Medical Decision Making - Medical Records Medical records reviewed: Yes: I reviewed the patient's medical records. - [place] Inquiry Pt receiving controlled substance: No Vital Signs: 06/01/21 14:07 06/01/21 16:00 06/01/21 16:30 Temperature 98.3 F Temperature Source Oral Pulse Rate 80 Pulse Rate [Right Radial] 96 H Respiratory Rate 18 20 Blood Pressure 132/68 123/63 Blood Pressure [Right Arm] 124/70 Blood Pressure Mean 89 83 Blood Pressure Mean [Right Arm] 88 Blood Pressure Source [Right Arm] Automatic Cuff Blood Pressure Position [Right Arm] Sitting 02 Sat by Pulse Oximetry 96 99 Oxygen Delivery Method Room Air 06/01/21 17:00 Temperature Temperature Source Pulse Rate Pulse Rate [Right Radial] Respiratory Rate Blood Pressure 143/70 H Blood Pressure [Right Arm] Blood Pressure Mean 94 Blood Pressure Mean [Right Arm] Blood Pressure Source [Right Arm] Blood Pressure Position [Right Arm] 02 Sat by Pulse Oximetry Oxygen Delivery Method - Lab Data Lab results reviewed: Yes: I reviewed the patient's lab results. Lab Results 06/01/21 14:21: Urine Color Yellow, Urine Appearance Cloudy, Urine pH 6.0, Ur Specific [place] 1.025, Urine Protein 3+, Urine Glucose (UA) Negative, Urine Ketones Negative, Urine Blood 3+, Urine Nitrate Negative, Urine Bilirubin Negative, Urine Urobilinogen 0.2, Ur Leukocyte Esterase 2+ A, Urine RBC 20-50, Urine WBC 10-20, Ur Squamous Epith Cells Occasional, Urine Bacteria 1+ 06/01/21 14:40: WBC 11.2 H, RBC 3.50 L, Hgb 12.1 L, Hct 37.4 L, MCV 106.8 H, MCH 34.4 H, MCHC 32.2, RDW 18.1 H, Plt Count 364, MPV 8.5, Neut % (Auto) 81.8 H, Lymph % (Auto) 9.6 L, [place] % (Auto) 7.8, Eos % (Auto) 0.4, Baso % (Auto) 0.4, Neut # (Auto) 9.2 H, Lymph # (Auto) 1.1, [place] # (Auto) 0.9, Eos # (Auto) 0.0, Baso # (Auto) 0.0 06/01/21 14:40: Sodium 135 L, Potassium 5.8 H, Chloride 100, Carbon Dioxide 21 L, Anion Gap 19.8 H, BUN 58 H, Creatinine 3.60 H, Estimated Creat Clear 15, Estimated GFR 16 L*, Est GFR ( Amer) 20 L, Glucose 112 H, Calcium 9.1, Total Bilirubin 1.8 H, AST 91 H, ALT 32, Alkaline Phosphatase 123, Troponin I 0.02, Total Protein 8.4 H, Albumin 4.5, Globulin 3.9 H, Albumin/Globulin Ratio 1.2 06/01/21 15:05: Lactate 2.2 H Result diagrams: 06/01/21 14:40 06/01/21 14:40 Orders (Tests/Meds): ED MEDICATIONS Generic Name Dose Route Start Last Admin Trade Name Freq PRN Reason Stop Dose Admin Ertapenem 1 gm/ Sodium 50 mls @ 100 mls/hr 06/01/21 16:00 06/01/21 16:06 Chloride IV 06/15/21 15:59 100 mls/hr Q24H BRYAN Administration ORDERS Category Date Time Status Rapid PCR Covid and Flu A/B Stat Lab 06/01/21 14:51 Ordered Troponin I Q3H Lab 06/01/21 18:00 Ordered Troponin I Q3H Lab 06/01/21 21:00 Ordered Blood Culture Stat Micro 06/01/21 15:05 Received Urine Culture Stat Micro 06/01/21 14:21 Received - Radiology Data #1 Image(s): Chest, L-Spine, Pelvis Image Reviewed: Yes I have reviewed radiologist's interpretation Preliminary Findings: No Fracture Seen - ECG Data Tracing #1 Normal Sinus Rhythm: Yes Ischemic changes: non-specific ST-T wave changes
[2021-06-01 18:13] LABS: Coronavirus 19, PCR Not Detected (NotDetected); Influenza A, PCR Not Detected (NotDetected); Influenza B, PCR Not Detected (NotDetected)
--- NOTE | 2021-06-01 18:28 | PC.NURSE ---
Called report to Shelbie
[2021-06-01 19:25] LABS: Reflex Lactic Add Lactic Reflex
[2021-06-01 19:27] LABS: Troponin I < 0.01 ng/ml (0.00-0.034)
[2021-06-01 19:50] LABS: Lactic Acid Follow Up (RFLX 1) 1.1 mmol/L (0.7-2.1)
--- NOTE | 2021-06-01 20:47 | PC.NURSE ---
PT ARRIVED TO FLOOR VIA W/C FROM ED W/STAFF [id number]
[2021-06-01 22:11] LABS: Troponin I < 0.01 ng/ml (0.00-0.034)
--- NOTE | 2021-06-02 00:08 | XR_ITS ---
PROCEDURE INFORMATION: Exam: XR Chest Exam date and time: 06/02/2021 12:08 AM Age: 85 years old Clinical indication: Shortness of breath; Additional info: SOB TECHNIQUE: Imaging protocol: XR of the chest. Views: 2 views. COMPARISON: CR XR CHEST PORTABLE 06/01/2021 3:09 PM FINDINGS: Lungs: Probable calcified granuloma at the right lung base. Pleural spaces: No pleural effusion. No pneumothorax. Heart/Mediastinum: Unremarkable cardiomediastinal silhouette. Bones/joints: No acute osseous findings. IMPRESSION: No focal consolidation.
[2021-06-02 04:00] VITALS: BP 126/70; PULSE 80; RESP 17; TEMP 36.6; O2SAT 96
--- NOTE | 2021-06-02 04:05 | PC.NURSE ---
Patient is A&Ox4. He has a F/C placed with adequate urine output. There is bruising to his left side and abrasions to his elbows from a fall at home earlier today. He has rested well and with no complaints this shift. IV is infusing NS @ 75ml/hr per dial-a-flow. VSS, call light within reach, will continue to monitor.
[2021-06-02 05:08] VITALS: BMI 21.9
[2021-06-02 06:58] LABS: Chloride 106 mmol/L (98-107); Sodium 138 mmol/L (136-145)
[2021-06-02 06:59] LABS: Potassium 4.2 mmoL/L (3.5-5.1)
[2021-06-02 07:02] LABS: Anion Gap 13.2 mEq/L (5-15); Blood Urea Nitrogen 41 mg/dl (9-20); Calcium 8.5 mg/dl (8.4-10.2); Carbon Dioxide 23 mmol/L (22.0-30.0); Creatinine Clearance Estimated 27 mL/min (50-200); Estimated Glomerular Filt Rate 34 ml/min (>60); GFR (African American) 41 ML/MIN (>60); Glucose 100 mg/dl (74-100); Magnesium 2.2 mg/dl (1.6-2.3)
[2021-06-02 07:03] LABS: Basophils % 0.5 % (0.1-2.0); Eosinophils # 0.2 K/mm3 (0.0-0.4)
[2021-06-02 07:14] LABS: Eosinophils % 3.4 % (0.1-12.0); Hematocrit 32.2 % (42.0-52.0); Lymphocytes # 1.6 K/mm3 (0.7-4.5); Lymphocytes % 26.3 % (10-50); Mean Corpuscular HGB Conc 33.3 g/dL (31.8-35.4); Mean Platelet Volume 7.8 fl (7.4-10.4); Monocytes # 0.7 K/mm3 (0.1-1.0); Monocytes % 11.1 % (1.7-9.3); Neutrophils # 3.5 K/mm3 (1.8-7.8); Neutrophils % 58.7 % (37.0-80.0); Platelet Count 310 K/mm3 (142-424); Red Blood Count 3.06 M/mm3 (4.60-6.20); Red Cell Distribution Width 17.8 % (11.5-17.5)
[2021-06-02 07:15] LABS: Hemoglobin 10.7 g/dL (14.1-18.0)
[2021-06-02 08:00] VITALS: BP 124/59; PULSE 78; RESP 18; TEMP 36.6; O2SAT 100
--- NOTE | 2021-06-02 08:20 | HMH.HP ---
*Admission Date: 06/01/21 *Chief complaint: Weakness *History of present illness: 85 year old male with a history of colon cancer, frequent UTI and BPH presented to [facility] ER last night complaining of a few day history of generalized weakness. He states he fell a couple of time at home on the day of admission. He did not his his head and did not have any loss of consciousness. He had also been having problems with dry mouth and decreased urine output. [facility] History I have reviewed the patient's past medical history: Yes Medical History: Reports:: Cancer, Gastroesophageal Reflux Disease(GERD), Hyperlipidemia, Hypertension, Urinary Tract Infection Denies:: Diabetes Mellitus Type 1, Diabetes Mellitus Type 2, Internal Pacemaker, MRSA, Seizures *Have you ever received a pneumonia vaccine?: Yes *Have you received a flu vaccine this season?: Yes Other Medical History: Reports: Arthritis, Chemotherapy, Other (colon cancer, Dx: 2020) Other Surgeries: Yes: No Previous Surgery, Cancer Surgery, Colonoscopy, Colon Resection (2020), Colostomy (h/o in 1998), Hernia Repair, Skin Cancer Excision. No: Pacemaker Amputation: No Fractures: Yes (left hand, pinky finger) - *Social History Smoking Status: Never smoker Alcohol Intake: never Alcohol Intake Frequency:: 0-2 drinks per day Substance Use Type: denies use *Occupational Status:: retired Housing: house Household Members: spouse *Travel in the last 8 weeks: None Family Hx:: Unable to obtain Review of Systems - Constitutional Denies chills, Denies fever(s) - Eyes Denies blurry vision - ENT Denies bleeding gums - *Cardiovascular Denies chest pain - *Respiratory Denies cough - *Gastrointestinal Denies abdominal pain - *Genitourinary Reports difficulty urinating - *Musculoskeletal Denies joint pain - Integumentary/Breasts Denies rash - *Neurologic Denies headache(s) - Psychiatric Denies anxiety Meds Home Medications Medication Instructions Recorded Confirmed Type Capecitabine [Xeloda] 500 mg PO DIRECTED 03/13/21 06/01/21 History Prochlorperazine Maleate 10 mg PO Q4H PRN 03/13/21 06/01/21 History aspirin 325 mg tablet 81 mg PO DAILY 04/11/21 06/01/21 History Oxybutynin Chloride 5 mg PO BID 06/01/21 06/01/21 History Allergies Allergy/AdvReac Type Severity Reaction Status Date / Time No Known Allergies Allergy Verified 05/23/21 14:08 Exam Vital signs and Labs for Last 24 Hours: Temp Pulse Resp BP Pulse Ox 97.9 F 80 17 126/70 96 06/02/21 04:00 06/02/21 04:00 06/02/21 04:00 06/02/21 04:00 06/02/21 04:00 Laboratory Results - last 24 hr 06/01/21 14:21: Urine Color Yellow, Urine Appearance Cloudy, Urine pH 6.0, Ur Specific [place] 1.025, Urine Protein 3+, Urine Glucose (UA) Negative, Urine Ketones Negative, Urine Blood 3+, Urine Nitrate Negative, Urine Bilirubin Negative, Urine Urobilinogen 0.2, Ur Leukocyte Esterase 2+ A, Urine RBC 20-50, Urine WBC 10-20, Ur Squamous Epith Cells Occasional, Urine Bacteria 1+ 06/01/21 14:40: WBC 11.2 H, RBC 3.50 L, Hgb 12.1 L, Hct 37.4 L, MCV 106.8 H, MCH 34.4 H, MCHC 32.2, RDW 18.1 H, Plt Count 364, MPV 8.5, Neut % (Auto) 81.8 H, Lymph % (Auto) 9.6 L, [place] % (Auto) 7.8, Eos % (Auto) 0.4, Baso % (Auto) 0.4, Neut # (Auto) 9.2 H, Lymph # (Auto) 1.1, [place] # (Auto) 0.9, Eos # (Auto) 0.0, Baso # (Auto) 0.0 06/01/21 14:40: Sodium 135 L, Potassium 5.8 H, Chloride 100, Carbon Dioxide 21 L, Anion Gap 19.8 H, BUN 58 H, Creatinine 3.60 H, Estimated Creat Clear 15, Estimated GFR 16 L*, Est GFR ( Amer) 20 L, Glucose 112 H, Calcium 9.1, Total Bilirubin 1.8 H, AST 91 H, ALT 32, Alkaline Phosphatase 123, Troponin I 0.02, Total Protein 8.4 H, Albumin 4.5, Globulin 3.9 H, Albumin/Globulin Ratio 1.2 06/01/21 15:05: Lactate 2.2 H 06/01/21 18:05: SARS-CoV-2 (PCR) Not detected, Influenza A Untype (PCR) Not detected, Influenza Type B (PCR) Not detected 06/01/21 18:35: Troponin I < 0.01 06/01/21 19:36: Lactate 1.1 06/01/21 2
--- NOTE | 2021-06-02 08:30 | PC.NURSE ---
Spoke with pts son Cal, he states he will briing in pt's home meds when he comes to visit.
--- NOTE | 2021-06-02 12:20 | HMH.PHAINT ---
MEDICATION RECONCILIATION COMPLETE USING RX BOTTLES AND CONFIRMING WITH EXTERNAL PHARMACY FILL HISTORY
--- NOTE | 2021-06-02 12:21 | P.CONPHA_ITS ---
[facility] Pharmacy VTE Monitoring - Patient Demographics Admission date: 06/01/21 Report Date: 06/02/21 Time: 12:21 Allergies/Adverse Reactions: Patient Allergies No Known Allergies Allergy (Verified 05/23/21 14:08) Height: 1.73 m Weight: 65.771 kg Patient Problems: Current Active Problems UTI (urinary tract infection) (Acute) Acute urinary retention (Acute) SIOBHAN (acute kidney injury) (Acute) Syncope, near (Acute) History of colon cancer (Acute) - VTE Risk Labs: VTE Related Lab Results Hgb 10.7 g/dL (14.1-18.0) L D 06/02/21 06:35 Hct 32.2 % (42.0-52.0) L 06/02/21 06:35 Plt Count 310 K/mm3 (142-424) 06/02/21 06:35 BUN 41 mg/dl (9-20) H D 06/02/21 06:35 Creatinine 1.90 mg/dl (0.66-1.25) H D 06/02/21 06:35 Estimated Creat Clear 27 mL/min (50-200) 06/02/21 06:35 Was VTE Risk Assessment Performed: Yes VTE Risk Level: Moderate Risk Clinical Trial Participant: No - Prophylaxis VTE Prophylaxis Ordered?: Yes Types of VTE Prophylaxis: TEDS Knee High Location of Applied Device: Bilateral Lower Extremeties
[2021-06-02 15:56] VITALS: BP 137/60; PULSE 56; RESP 18; TEMP 36.9; O2SAT 99
--- NOTE | 2021-06-02 18:56 | PC.NURSE ---
AOX4, ABLE TO MAKE NEEDS KNOWN TO STAFF, TOLERATING RA. VSS.
[2021-06-02 20:00] VITALS: BP 132/64; PULSE 58; RESP 18; TEMP 36.6; O2SAT 99
[2021-06-03 04:00] VITALS: BP 128/64; PULSE 72; RESP 18; TEMP 36.7; O2SAT 96
[2021-06-03 05:00] VITALS: BMI 21.9
--- NOTE | 2021-06-03 06:38 | PC.NURSE ---
A&OX4. TOLERATING RA WELL. NO C/O T/O NIGHT, SLEEPING COMFORTABLY. VSS WILL CONTINUE TO MONITOR.
[2021-06-03 07:46] LABS: Basophils # 0.1 K/mm3 (0-0.2); Basophils % 0.7 % (0.1-2.0); Eosinophils # 0.5 K/mm3 (0.0-0.4); Eosinophils % 6.4 % (0.1-12.0); Hematocrit 33.1 % (42.0-52.0); Hemoglobin 10.5 g/dL (14.1-18.0); Lymphocytes # 1.7 K/mm3 (0.7-4.5); Mean Corpuscular HGB Conc 31.6 g/dL (31.8-35.4); Mean Corpuscular Hemoglobin 33.8 pg (27.0-31.2); Mean Corpuscular Volume 107.2 fl (80-94); Mean Platelet Volume 8.4 fl (7.4-10.4); Monocytes # 0.7 K/mm3 (0.1-1.0); Monocytes % 9.5 % (1.7-9.3); Neutrophils # 4.3 K/mm3 (1.8-7.8); Neutrophils % 59.4 % (37.0-80.0); Platelet Count 330 K/mm3 (142-424); Red Blood Count 3.09 M/mm3 (4.60-6.20); Red Cell Distribution Width 17.3 % (11.5-17.5); White Blood Count 7.2 K/mm3 (4.8-10.8)
[2021-06-03 07:52] LABS: Chloride 109 mmol/L (98-107)
[2021-06-03 07:53] LABS: Potassium 4.4 mmoL/L (3.5-5.1); Sodium 139 mmol/L (136-145)
[2021-06-03 07:55] LABS: Blood Urea Nitrogen 28 mg/dl (9-20); Creatinine Clearance Estimated 40 mL/min (50-200); Estimated Glomerular Filt Rate 53 ml/min (>60); GFR (African American) 64 ML/MIN (>60)
[2021-06-03 07:56] LABS: Anion Gap 11.4 mEq/L (5-15); Calcium 8.5 mg/dl (8.4-10.2); Carbon Dioxide 23 mmol/L (22.0-30.0); Glucose 97 mg/dl (74-100)
[2021-06-03 08:00] VITALS: BP 128/66; PULSE 59; RESP 18; TEMP 36.6; O2SAT 97
--- NOTE | 2021-06-03 08:36 | HMH.ACPN2 ---
Internal Medicine - PN: Subj *Date: 06/03/21 *Time: 08:36 Interval history: Pt feels better, no new complaints, would like MiraLax for constipation. Exam Vital signs and Labs for Last 24 Hours: Temp Pulse Resp BP Pulse Ox 97.8 F 59 L 18 128/66 97 06/03/21 08:00 06/03/21 08:00 06/03/21 08:00 06/03/21 08:00 06/03/21 08:00 Laboratory Results - last 24 hr 06/03/21 07:22: WBC 7.2, RBC 3.09 L, Hgb 10.5 L, Hct 33.1 L, MCV 107.2 H, MCH 33.8 H, MCHC 31.6 L, RDW 17.3, Plt Count 330, MPV 8.4, Neut % (Auto) 59.4, Lymph % (Auto) 24.0, [place] % (Auto) 9.5 H, Eos % (Auto) 6.4, Baso % (Auto) 0.7, Neut # (Auto) 4.3, Lymph # (Auto) 1.7, [place] # (Auto) 0.7, Eos # (Auto) 0.5 H, Baso # (Auto) 0.1 06/03/21 07:22: Sodium 139, Potassium 4.4, Chloride 109 H, Carbon Dioxide 23, Anion Gap 11.4, BUN 28 H D, Creatinine 1.30 H D, Estimated Creat Clear 40, Estimated GFR 53 L, Est GFR ( Amer) 64 D, Glucose 97, Calcium 8.5 Vital Signs - 24 hr 06/02/21 15:56 06/02/21 20:00 06/03/21 04:00 Temperature 98.4 F 97.9 F 98.0 F Pulse Rate [Right Radial] 56 L 58 L 72 Respiratory Rate 18 18 18 Blood Pressure [Right Arm] 137/60 132/64 128/64 02 Sat by Pulse Oximetry 99 99 96 06/03/21 08:00 Temperature 97.8 F Pulse Rate [Right Radial] 59 L Respiratory Rate 18 Blood Pressure [Right Arm] 128/66 02 Sat by Pulse Oximetry 97 I & O for Last 24 hours: Intake & Output 05/31/21 06/01/21 06/02/21 06/03/21 23:59 23:59 23:59 23:59 Intake Total 50 / 50 960 / 960 480 / 480 Output Total 1700 / 1700 1300 / 1300 Balance 50 / -850 -740 / -740 -820 / -820 Weight 145 lb 145 lb 145 lb Microbiology Reports for the Last 24 Hours: Microbiology 06/01/21 14:21 Urine,Clean Catch Urine Culture - Preliminary NO GROWTH AFTER 24 HOURS - Constitutional no acute distress - *Routine HEENT Exam Head: Present: normocephalic Eye: Present: EOMI, PERRL ENT: Present: mucous membranes moist - *Routine Neck Exam Present: supple. Absent: lymphadenopathy - *Routine Respiratory Exam Present: CTA bilaterally - *Routine Cardiovascular Exam Present: RRR - *Routine Abdominal Exam Present: soft, normoactive bowel sounds. Absent: tenderness - *Routine Extremities Exam Absent: cyanosis, clubbing, edema - *Routine Skin Exam Present: warm. Absent: rash - *Routine Neurological Exam Present: alert, oriented X3 Assessment and Plan (1) SIOBHAN (acute kidney injury) Status: Acute Category: Medical Code(s): N17.9 - Acute kidney failure, unspecified (2) Acute urinary retention Status: Acute Category: Medical Code(s): R33.8 - Other retention of urine (3) Syncope, near Status: Acute Category: Medical Code(s): R55 - Syncope and collapse (4) UTI (urinary tract infection) Status: Acute Qualifiers: Urinary tract infection type: site unspecified Hematuria presence: without hematuria Qualified Code(s): N39.0 - Urinary tract infection, site not specified Category: Medical Code(s): N39.0 - Urinary tract infection, site not specified (5) History of colon cancer Status: Acute Category: Medical Code(s): Z85.038 - Personal history of other malignant neoplasm of large intestine - Assessment and plan all Dx Assessment and Plan for all problems:: eGFR improved, OK to start MiraLax, await Urology recommendations
--- NOTE | 2021-06-03 12:15 | HMH.CONS ---
*Admission Date: 06/01/21 *Reason for consult:: Urinary retention *History of present illness: Patient is an 85-year-old white male who is well-known to me for recent symptoms urinary frequency and nocturia. He was admitted to the hospital from the emergency room 2 days ago. He presented to the hospital with complaints of weakness and difficulty voiding. He had also had some associated dizziness and had fallen down at least twice. His son brought him in for evaluation. His white count was normal but his creatinine was elevated to 3.6. Catheter was placed and reportedly 1 L of urine was obtained. Catheter was left in and is draining rae urine. His renal function has improved with the catheter in his creatinine today is 1.3. Patient has also been complaining of dry mouth and decreased urine output. He was placed on oxybutynin 5 mg twice daily by myself on May 22. His bladder scan in the office at that time was only 49 cc. He also states he has not had a bowel movement in 5 days and was started on MiraLAX this morning. The combination of the oxybutynin in the constipation are likely related to his current urinary retention. His urine culture in the office on May 22 showed no evidence of infection in his urine culture obtained here shows no evidence of infection. The cause of his recent urinary symptoms started about the same time he started a chemotherapy pill but review of literature on that medication shows minimal urinary side effects.Capecitabine is the chemo pill. [facility] History Medical History: Reports:: Cancer, Gastroesophageal Reflux Disease(GERD), Hyperlipidemia, Hypertension, Urinary Tract Infection Denies:: Diabetes Mellitus Type 1, Diabetes Mellitus Type 2, Internal Pacemaker, MRSA, Seizures *Have you ever received a pneumonia vaccine?: Yes *Have you received a flu vaccine this season?: Yes Other Medical History: Reports: Arthritis, Chemotherapy, Other (colon cancer, Dx: 2020) Other Surgeries: Yes: No Previous Surgery, Cancer Surgery, Colonoscopy, Colon Resection (2020), Colostomy (h/o in 1998), Hernia Repair, Skin Cancer Excision. No: Pacemaker Amputation: No Fractures: Yes (left hand, pinky finger) - *Social History Smoking Status: Never smoker Alcohol Intake: never Alcohol Intake Frequency:: 0-2 drinks per day Substance Use Type: denies use *Occupational Status:: retired Housing: house Household Members: spouse *Travel in the last 8 weeks: None Family Hx:: Unable to obtain Review of Systems - Review of Systems Review of systems:: pertinent systems reviewed and negative unless documented below - *Neurologic Denies localized weakness, Denies headache(s), Denies seizure-like activity Meds Home Medications Medication Instructions Recorded Confirmed Type Capecitabine [Xeloda] 500 mg PO DIRECTED 03/13/21 06/01/21 History Prochlorperazine Maleate 10 mg PO Q4H PRN 03/13/21 06/01/21 History Oxybutynin Chloride 5 mg PO BID 06/01/21 06/01/21 History Aspirin [Aspirin 81mg EC Tab] 81 mg PO DAILY 06/02/21 06/02/21 History Cholecalciferol (Vitamin D3) 50,000 unit PO WEEKLY 06/02/21 06/02/21 History [Vitamin D3 50,000 unit Cap] Mirabegron [Myrbetriq] 50 mg PO DAILY 06/02/21 06/02/21 History Allergies Allergy/AdvReac Type Severity Reaction Status Date / Time No Known Allergies Allergy Verified 05/23/21 14:08 Exam Vital signs and Labs for Last 24 Hours: Temp Pulse Resp BP Pulse Ox 97.8 F 59 L 18 128/66 97 06/03/21 08:00 06/03/21 08:00 06/03/21 08:00 06/03/21 08:00 06/03/21 08:00 Laboratory Results - last 24 hr 06/03/21 07:22: WBC 7.2, RBC 3.09 L, Hgb 10.5 L, Hct 33.1 L, MCV 107.2 H, MCH 33.8 H, MCHC 31.6 L, RDW 17.3, Plt Count 330, MPV 8.4, Neut % (Auto) 59.4, Lymph % (Auto) 24.0, [place] % (Auto) 9.5 H, Eos % (Auto) 6.4, Baso % (Auto) 0.7, Neut # (Auto) 4.3, Lymph # (Auto) 1.7, [place] # (Auto) 0.7, Eos # (Auto) 0.5 H, Baso # (Auto) 0.1 06/03/21 07:22: Sodium 139, Potassium 4.4,
[2021-06-03 15:18] VITALS: BP 128/52; PULSE 59; RESP 18; TEMP 36.8; O2SAT 98
--- NOTE | 2021-06-06 09:31 | HMH.DCSUM ---
General - General Admission date:: 06/01/21 Discharge date: 06/03/21 HPI HPI: 85 year old male with a history of colon cancer, frequent UTI and BPH presented to [facility] ER last night complaining of a few day history of generalized weakness. He stated he fell a couple of time at home on the day of admission. He did not hit his head and did not have any loss of consciousness. He had also been having problems with dry mouth and decreased urine output. Hospital Course Hospital Course: On admission IV fluids were continued. He was started on IV Invanz. Urology was consulted who noted treatment with Myrbetriq and Flomax had been unsuccessful. He had recently been placed on oxybutynin. He felt this drug and constipation contributed to the current urinary retention. Thus oxybutynin was discontinued with plans to stimulate a bowel movement with MiraLAX. He recommended for patient to have bowel evacuation prior to discharge. He also recommended leaving the Mata catheter in at discharge in order to allow the patient to get some rest which would help with his fatigue. Follow-up visit in 1 week was recommended. On 06/03/2021 patient was feeling better with no new complaints. He was given MiraLAX and bowels did move. GFR had improved. He was thus discharged on this date with Mata in place. He was to follow-up with Dr. Adam in [address] Nieves in 2 weeks.. Medications as per medication reconciliation sheet. To note urine and blood cultures after discharge were negative. Objective Vital signs: Temp Pulse Resp BP Pulse Ox 98.2 F 59 L 18 128/52 L 98 06/03/21 15:18 06/03/21 15:18 06/03/21 15:18 06/03/21 15:18 06/03/21 15:18 Narrative: Exam Vital signs and Labs for Last 24 Hours: Temp Pulse Resp BP Pulse Ox 97.8 F 59 L 18 128/66 97 06/03/21 08:00 06/03/21 08:00 06/03/21 08:00 06/03/21 08:00 06/03/21 08:00 Laboratory Results - last 24 hr 06/03/21 07:22: WBC 7.2, RBC 3.09 L, Hgb 10.5 L, Hct 33.1 L, MCV 107.2 H, MCH 33.8 H, MCHC 31.6 L, RDW 17.3, Plt Count 330, MPV 8.4, Neut % (Auto) 59.4, Lymph % (Auto) 24.0, [place] % (Auto) 9.5 H, Eos % (Auto) 6.4, Baso % (Auto) 0.7, Neut # (Auto) 4.3, Lymph # (Auto) 1.7, [place] # (Auto) 0.7, Eos # (Auto) 0.5 H, Baso # (Auto) 0.1 06/03/21 07:22: Sodium 139, Potassium 4.4, Chloride 109 H, Carbon Dioxide 23, Anion Gap 11.4, BUN 28 H D, Creatinine 1.30 H D, Estimated Creat Clear 40, Estimated GFR 53 L, Est GFR ( Amer) 64 D, Glucose 97, Calcium 8.5 Vital Signs - 24 hr 06/02/21 15:56 06/02/21 20:00 06/03/21 04:00 Temperature 98.4 F 97.9 F 98.0 F Pulse Rate [Right Radial] 56 L 58 L 72 Respiratory Rate 18 18 18 Blood Pressure [Right Arm] 137/60 132/64 128/64 02 Sat by Pulse Oximetry 99 99 96 06/03/21 08:00 Temperature 97.8 F Pulse Rate [Right Radial] 59 L Respiratory Rate 18 Blood Pressure [Right Arm] 128/66 02 Sat by Pulse Oximetry 97 I & O for Last 24 hours: Intake & Output 05/31/21 06/01/21 06/02/21 06/03/21 23:59 23:59 23:59 23:59 Intake Total 50 / 50 960 / 960 480 / 480 Output Total 1700 / 1700 1300 / 1300 Balance 50 / -850 -740 / -740 -820 / -820 Weight 145 lb 145 lb 145 lb Microbiology Reports for the Last 24 Hours: Microbiology 06/01/21 14:21 Urine,Clean Catch Urine Culture - Preliminary NO GROWTH AFTER 24 HOURS - Constitutional no acute distress - *Routine HEENT Exam Head: Present: normocephalic Eye: Present: EOMI, PERRL ENT: Present: mucous membranes moist - *Routine Neck Exam Present: supple. Absent: lymphadenopathy - *Routine Respiratory Exam Present: CTA bilaterally - *Routine Cardiovascular Exam Present: RRR - *Routine Abdominal Exam Present: soft, normoactive bowel sounds. Absent: tenderness - *Routine Extremities Exam Absent: cyanosis, clubbing, edema - *Routine Skin Exam Present: warm. Absent: rash - *Routine Neurological Exam
== END 2021-06-03 17:50 | disposition home or self-care (01) | DRG 690 ==
LOC: ER 14:42 → 2ND 17:47
PROVIDERS: Admitting Provider Family Medicine; Emergency Provider Emergency Medicine; PCP Family Medicine; Visit Provider Family Medicine
DX: N39.0 Urinary tract infection, site not specified (principal); N17.9 Acute kidney failure, unspecified; C18.9 Malignant neoplasm of colon, unspecified; Z20.822 Contact with and (suspected) exposure to COVID-19; R33.8 Other retention of urine; I10 Essential (primary) hypertension; K21.9 Gastro-esophageal reflux disease without esophagitis; Z79.899 Other long term (current) drug therapy; R29.6 Repeated falls
CPT/HCPCS: 36415; 71045; 71046; 72100; 72170; 80048; 80053; 81001; 83605; 83735; 84484; 85025; 87040; 87086; 93005; 96365; 99284; J1335; U0003

== ENCOUNTER → 2021-07-05 12:09 | Outpatient (CLI) | payer MEDICARE, BC, SELFPAY ==
[2021-07-05 13:18] LABS: Basophils # 0.1 K/mm3 (0-0.2); Basophils % 0.8 % (0.1-2.0); Eosinophils # 0.2 K/mm3 (0.0-0.4); Hematocrit 39.7 % (42.0-52.0); Hemoglobin 12.5 g/dL (14.1-18.0); Lymphocytes # 2.3 K/mm3 (0.7-4.5); Lymphocytes % 28.2 % (10-50); Mean Corpuscular HGB Conc 31.6 g/dL (31.8-35.4); Mean Corpuscular Hemoglobin 34.4 pg (27.0-31.2); Mean Corpuscular Volume 109.1 fl (80-94); Monocytes # 0.6 K/mm3 (0.1-1.0); Monocytes % 6.8 % (1.7-9.3); Neutrophils # 4.9 K/mm3 (1.8-7.8); Neutrophils % 61.2 % (37.0-80.0); Platelet Count 430 K/mm3 (142-424); Red Blood Count 3.64 M/mm3 (4.60-6.20)
[2021-07-05 13:40] LABS: Alanine Aminotransferase 12 U/L (12-78); Albumin Level 4.2 g/dl (3.5-5.0); Albumin/Globulin Ratio 1.3 (1.1-1.8); Alkaline Phosphatase 183 U/L (38-126); Anion Gap 13.1 mEq/L (5-15); Aspartate Amino Transferase 21 U/L (17-59); Bilirubin,Total 0.6 mg/dl (0.2-1.3); Blood Urea Nitrogen 23 mg/dl (9-20); Calcium 9.7 mg/dl (8.4-10.2); Carbon Dioxide 27 mmol/L (22.0-30.0); Chloride 105 mmol/L (98-107); Estimated Glomerular Filt Rate 48 ml/min (>60); GFR (African American) 59 ML/MIN (>60); Globulin 3.3 g/dL (1.3-3.2); Glucose 98 mg/dl (74-100); Potassium 5.1 mmoL/L (3.5-5.1); Sodium 140 mmol/L (136-145); Total Protein,Serum 7.5 g/dl (6.3-8.2)
== END ==
PROVIDERS: Visit Provider Internal Medicine Medical Oncology
DX: C18.9 Malignant neoplasm of colon, unspecified (principal)
CPT/HCPCS: 36415; 80053; 85025

== ENCOUNTER 2021-07-11 17:03 | Emergency (ER) | payer MEDICARE, BC, SELFPAY ==
[2021-07-11 17:21] VITALS: BP 147/78; PULSE 88; RESP 18; TEMP 36.9; O2SAT 98; BMI 21.7
[2021-07-11 17:45] VITALS: BP 147/78; PULSE 88; RESP 18; TEMP 36.9; O2SAT 98; BMI 21.7
--- NOTE | 2021-07-11 17:52 | HMH.EDUTC ---
[facility] [place] Clinical Impression: Ritter catheter in place UTI (urinary tract infection) Qualifiers: Urinary tract infection type: site unspecified Hematuria presence: with hematuria Qualified Code(s): N39.0 - Urinary tract infection, site not specified; R31.9 - Hematuria, unspecified Disposition: Home, Self-Care Condition on Discharge: Good Instructions: How to Care for Your Ritter Catheter -- Male Additional Instructions: Follow up with Dr Adam as scheduled Return if needed Straight to ER if any life threatening symptoms Make sure to follow up for your Urine culture results and further treatment if needed Prescriptions: Cefdinir [Omnicef 300mg Capsule] 300 mg PO BID 7 Days #14 cap Transmission Status: Received by [id number] Referrals: Mike Nieves MD [Primary Care Provider] - As needed Samuel Adam MD [Staff Physician] - Time of Disposition: 18:25 Medical Decision Making - [place] Inquiry Pt receiving controlled substance: No [place] was queried for this patient: No Vital Signs: 07/11/21 17:21 07/11/21 17:45 Temperature 98.5 F 98.5 F Temperature Source Oral Oral Pulse Rate [Left] 88 88 Respiratory Rate 18 18 Blood Pressure [Right Arm] 147/78 H 147/78 H Blood Pressure Mean [Right Arm] 101 101 Blood Pressure Source [Right Arm] Automatic Cuff Blood Pressure Position [Right Arm] Sitting 02 Sat by Pulse Oximetry 98 98 Oxygen Delivery Method Room Air - Lab Data Lab results reviewed: Yes: I reviewed the patient's lab results. Orders (Tests/Meds): ORDERS Category Date Time Status Urine Culture(cathed specimen) Stat Micro 07/11/21 18:33 Ordered Medical Decision Narrative: Ritter placed by nurse draining well at bedside patient denies discomfort, urine collected and culture sent to lab [facility] [place] - General Stated complaint: bladder infection Time Seen by Provider: 07/11/21 17:54 Mode of Arrival: Ambulatory Source of Information: Patient Limitations: No Limitations Description of Symptoms (Recalled from Triage Doc. 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 Pt states he was seen in the urology office thursday to d/c his ritter for a urinary trial. Pt states he has not been able to urinate since thursday. Pt reports calling his urologist who told him to be seen to have a ritter placed until his appointment on thursday. Pt denies belly pain and back pain. HEENT Symptoms (Recalled from RN notes): No Resp Symptoms (Recalled from RN notes): No Skin Symptoms (Recalled from RN notes): No MS Symptoms (Recalled from RN notes): No Functional Status (Recalled from RN notes): n/a - History of Present Illness Provider Complaint: Patient states that he has been having Chemo for colon ca and has been seeing Dr Adam for urinary retention after starting Chemo States that they took his ritter out for a trial run to see if he would be ok without it a few days ago but he has been up and down about every 30 min according to family and only urinating small amounts at a time States that they spoke with Dr Adam and he wanted them to bring him in to have a ritter anchored until his apppointment on Thursday - Related Data Home Medications Medication Instructions Recorded Confirmed Capecitabine [Xeloda] 500 mg PO DIRECTED 03/13/21 07/08/21 Prochlorperazine Maleate 10 mg PO Q4H PRN 03/13/21 07/08/21 Aspirin [Aspirin 81mg EC Tab] 81 mg PO DAILY 06/02/21 07/08/21 Cholecalciferol (Vitamin D3) 50,000 unit PO WEEKLY 06/02/21 07/08/21 [Vitamin D3 50,000 unit Cap] Previous Rx's Medication Instructions Recorded Cefdinir [Omnicef 300mg Capsule] 300 mg PO BID 7 Days #14 cap 07/11/21 Allergies Allergy/AdvReac Type Severity Reaction Status Date / Time No Known Allergies Allergy Verified 07/08/21 14:02 - Worker's Comp Is this a Worker's Comp case?: No [facility] History - Hepatitis A Screen Drug use history?: No High risk
[2021-07-11 18:39] LABS: Color,Urine Dark Yellow (Yellow)
[2021-07-11 18:40] LABS: Apearance,Urine Cloudy (Clear); Bilirubin,Urine Negative (Negative); Blood, Urine 2+ (Negative); Glucose,Urine (UA) Negative (Negative); Ketones,Urine Negative (Negative); Protein,Urine 1+ (Negative); Specific Gravity, Urine 1.025 (1.005-1.030); UTC Leukocyte Esterase,Urine 1+ (Negative); Urobilinogen,Urine 0.2 EU/dl (0.2)
[2021-07-11 18:41] LABS: UTC Nitrate,Urine Negative (Negative)
[2021-07-11 18:43] VITALS: BP 147/78; PULSE 88; RESP 18; TEMP 36.9; O2SAT 98
== END 2021-07-11 18:44 | disposition home or self-care (01) ==
LOC: ER 17:25 → UTC 17:25
PROVIDERS: Emergency Provider Nurse Practitioner; PCP Family Medicine
DX: N39.0 Urinary tract infection, site not specified (principal); R31.9 Hematuria, unspecified; R33.9 Retention of urine, unspecified; C18.9 Malignant neoplasm of colon, unspecified; Z85.828 Personal history of other malignant neoplasm of skin; E78.5 Hyperlipidemia, unspecified
CPT/HCPCS: 81003; 87086; 99202; G0463

== ENCOUNTER → 2021-07-16 14:04 | Outpatient (CLI) | payer MEDICARE, BC, SELFPAY | PROVIDERS: Visit Provider Urology | DX: R33.9 Retention of urine, unspecified (principal); Z01.812 Encounter for preprocedural laboratory examination; Z11.52 Encounter for screening for COVID-19 | CPT/HCPCS: C9803; U0003; U0005 ==

== ENCOUNTER 2021-07-19 08:58 | Day surgery (SDC) | payer MEDICARE, BC, SELFPAY ==
[2021-07-19 09:15] VITALS: BP 125/77; PULSE 82; RESP 18; TEMP 36.7; O2SAT 99; BMI 21.9
[2021-07-19 10:30] VITALS: BP 154/86; PULSE 82; RESP 16; TEMP 36.3; O2SAT 98
[2021-07-19 10:45] VITALS: BP 154/86; PULSE 82; RESP 16; TEMP 36.3; O2SAT 98
--- NOTE | 2021-07-19 11:33 | P.OP_ITS ---
Date of procedure: 07/19/21 Pre-op Diagnosis:: Urinary retention/urgency frequency Post-op Diagnosis:: BPH/chronic cystitis Procedure performed:: Cystoscopy Surgeon:: Samuel Adam MD Anesthesia: local Estimated blood loss (mL): 0 Clinical Note:: 85-year-old white male with severe urinary urgency and frequency. The symptoms have been refractory to medication and he has developed urinary retention. He presents for cystoscopic evaluation. Operative findings:: Trilobar hyperplasia/bullous edema and inflammatory findings in the bladder. Operative note:: Patient taken to the cystoscopy suite after informed consent was obtained. His Mata catheter was removed. On the stretcher he was kept in the supine position and prepped and draped in the standard surgical fashion. 2% lidocaine placed into the urethra and the urethra clamped for 5 minutes. After 5 minutes the clamp removed and the flexible cystoscope introduced into the urethral meatus. Passed to the prostatic urethra which showed bilobar hyperplasia. The bladder was entered and examined in a systematic fashion. There was bullous edema noted along the floor of the bladder as well as some thickened erythematous urothelium in the lateral and superior aspect of the bladder. The ureteral orifices were not identified due to the inflammatory findings. There was no evidence of a median lobe. Visualization was still difficult due to some debris in the bladder. Scope removed patient tolerated the procedure well. 16 [place]ian Mata catheter was replaced. I discussed the findings with the patient and his son. We discussed that he has some prostate enlargement but also has some chronic inflammatory findings in the bladder which were likely responsible for his initial findings of urgency and frequency. He is a good candidate for UroLift procedure but that is not going to improve his urgency and frequency symptoms. I am going to keep him on a 1 month course of Macrobid 100 mg twice a day and look back and under anesthesia in a month to see if there is been any improvement. If not we will biopsy couple of areas in the bladder. His bladder looks better we can discuss UroLift procedure. Condition: stable Disposition: same day Specimens:: None Complications:: None
== END 2021-07-19 10:45 | disposition home or self-care (01) ==
LOC: OUTP 09:00
PROVIDERS: PCP Family Medicine; Visit Provider Urology
DX: N40.1 Benign prostatic hyperplasia with lower urinary tract symptoms (principal); R33.8 Other retention of urine; R35.0 Frequency of micturition; N30.20 Other chronic cystitis without hematuria; N32.89 Other specified disorders of bladder; K21.9 Gastro-esophageal reflux disease without esophagitis; E78.5 Hyperlipidemia, unspecified; I10 Essential (primary) hypertension; M19.90 Unspecified osteoarthritis, unspecified site; Z87.440 Personal history of urinary (tract) infections; Z85.9 Personal history of malignant neoplasm, unspecified
CPT/HCPCS: 52000

== ENCOUNTER → 2021-08-07 08:25 | Outpatient (CLI) | payer MEDICARE, BC, SELFPAY ==
--- NOTE | 2021-08-07 | MR_ITS ---
PROCEDURE INFORMATION: Exam: MR Abdomen Without and With Contrast Exam date and time: 08/07/2021 12:00 AM Age: 85 years old Clinical indication: Condition or disease; Prior surgery; Surgery date: 6+ months; Surgery type: Colon cancer surgery; Patient HX: ? Mass seen on prior CT scan. There is redemonstration of a 1 centimeter cystic or cystic and mucinous pancreatic head lesion. Mri of the pancreas with and without contrast to include mrcp is recommended. The remaining solid abdominal organs have an unremarkable appearance. TECHNIQUE: Imaging protocol: MR of the abdomen without and with intravenous contrast. Contrast material: PROHANCE; Contrast volume: 13 ml; Contrast route: IV; COMPARISON: CT ABDOMEN PELVIS W CON 11/21/2020 9:26 AM FINDINGS: Liver: No mass. Gallbladder and bile ducts: See Pancreas finding. Pancreas: No solid mass or discrete cyst. There is a small lesion in the pancreatic head estimated at 1 cm corresponding with the prior CT findings which may represent a benign lipoma. No septation, nodularity or enhancing mass. No focal atrophy or ductal dilatation. Spleen: Unremarkable. No splenomegaly. Adrenal glands: Unremarkable. No mass. Kidneys and ureters: Unremarkable. No solid mass. No hydronephrosis. Stomach and bowel: See Pancreas finding. Intraperitoneal space: No free fluid. Arteries: No abdominal aortic aneurysm. Bones/joints: Unremarkable. Soft tissues: Postoperative change in the anterior abdominal wall. IMPRESSION: Benign proximal pancreatic lesion, no additional follow-up needed.
[2021-08-07 09:17] LABS: Anion Gap 10.9 mEq/L (5-15); Blood Urea Nitrogen 20 mg/dl (9-20); Calcium 9.8 mg/dl (8.4-10.2); Carbon Dioxide 31 mmol/L (22.0-30.0); Chloride 101 mmol/L (98-107); Estimated Glomerular Filt Rate 41 ml/min (>60); GFR (African American) 50 ML/MIN (>60); Glucose 117 mg/dl (74-100); Potassium 4.9 mmoL/L (3.5-5.1); Sodium 138 mmol/L (136-145)
== END ==
PROVIDERS: PCP Family Medicine; Visit Provider Surgery
DX: K86.89 Other specified diseases of pancreas (principal); C18.5 Malignant neoplasm of splenic flexure
CPT/HCPCS: 36415; 74183; 76376; 80048; A9576

== ENCOUNTER 2021-08-14 11:29 | Emergency (ER) | payer MEDICARE, BC, SELFPAY ==
[2021-08-14 11:30] VITALS: BP 143/95; PULSE 105; RESP 18; TEMP 36.4; O2SAT 96; BMI 20.3
--- NOTE | 2021-08-14 12:07 | PC.NURSE ---
ritter catheter replaced at this time per ER MD order approx 300 mL of urine dark higginbotham in color, nilesh noted in urine. Pt reports pain is improving after urine draining. urine specimen sent to lab per order notified ER MD of the above
[2021-08-14 12:09] LABS: Microscopic, Urine URINE MICROSCOPIC (MICROSCOPIC)
[2021-08-14 12:41] LABS: Appearance,Urine CLOUDY (Clear); Bilirubin,Urine Negative (Negative); Blood, Urine Negative (Negative); Color,Urine YELLOW (Yellow); Glucose,Urine (UA) Negative (Negative); Ketones,Urine Negative (Negative); Leukocyte Esterase,Urine 3+ (Negative); Nitrate,Urine Negative (Negative); Protein,Urine 2+ (Negative); Specific Gravity, Urine >= 1.030 (1.005-1.030); Urobilinogen,Urine 0.2 EU/dl (0.2)
[2021-08-14 12:56] LABS: Bacteria,Urine 2+ /lpf; WBC,Urine TNTC #/hpf (0-3)
--- NOTE | 2021-08-14 13:54 | HMH.EDGENADL ---
ED Disposition Clinical Impression: UTI (urinary tract infection), Catheter (urine) change required Disposition: Home, Self-Care Condition on Discharge: Good Additional Instructions: Please follow-up with urology team tomorrow for further management. Please utilize the cefdinir as prescribed for urinary tract infection. Please return back to the emergency department for any concerning symptoms such as reduced output from your catheter, worsening pain, blood from catheter, abdominal pain or any other worsening symptoms. Prescriptions: Cefdinir [Omnicef 300mg Capsule] 300 mg PO BID #20 cap Referrals: Mike Nieves MD [Primary Care Provider] - Time of Disposition: 14:40 - Critical Care Critical Care Time: No Attestation: On 08/14/21, the high probability of a clinically significant, sudden or life threatening deterioration of the following system(s) required my full and direct attention, intervention and personal management. The time I documented below is in addition to time spent performing reported procedures but includes the following listed in this critical care notation. Medical Decision Making - [place] Inquiry Pt receiving controlled substance: No Vital Signs: 08/14/21 11:30 08/14/21 14:31 Temperature 97.5 F L 98.3 F Temperature Source Oral Oral Pulse Rate 70 Pulse Rate [Right Radial] 105 H Respiratory Rate 18 16 Blood Pressure 136/72 Blood Pressure [Right Arm] 143/95 H Blood Pressure Mean [Right Arm] 111 Blood Pressure Source Automatic Cuff Blood Pressure Source [Right Arm] Automatic Cuff Blood Pressure Position Sitting Blood Pressure Position [Right Arm] Sitting 02 Sat by Pulse Oximetry 96 Oxygen Delivery Method Room Air Room Air - Lab Data Lab Results 08/14/21 12:04: Urine Color Yellow, Urine Appearance Cloudy, Urine pH 6.0, Ur Specific [place] >= 1.030, Urine Protein 2+, Urine Glucose (UA) Negative, Urine Ketones Negative, Urine Blood Negative, Urine Nitrate Negative, Urine Bilirubin Negative, Urine Urobilinogen 0.2, Ur Leukocyte Esterase 3+ A, Urine RBC 3-5, Urine WBC Tntc, Ur Squamous Epith Cells 3-5, Urine Bacteria 2+ Orders (Tests/Meds): ED MEDICATIONS Discontinued Medications Generic Name Dose Route Start Last Admin Trade Name Freq PRN Reason Stop Dose Admin Acetaminophen 500 mg 08/14/21 11:57 08/14/21 12:39 Acetaminophen 500mg Tab PO 08/14/21 11:58 500 mg ONCE ONE Administration Ibuprofen 400 mg 08/14/21 11:58 08/14/21 12:39 Ibuprofen 400 Mg Tablet PO 08/14/21 11:59 400 mg ONCE ONE Administration ORDERS Category Date Time Status Urine Culture Stat Micro 08/14/21 12:04 Received Urine Culture(cathed specimen) Stat Micro 08/14/21 12:04 Received Medical Decision Narrative: Mr. Hutchins is a 85 yo male w/ PMH for bladder functional bleeding w/ catheter placement, scheduled to undergo urological procedure tomorrow who presents to the ED for dysuria and penile pain. Of note patient currently being treated for UTI w/ macrobid. Patient is afebrile and hemodynamically stable on arrival. Physical exam: No scrotal or testicular pain. Penis is normal appearing, no abnormal discharged. Mata catheter in place with thick calcifications cough in the tube. Patient reportes reduced uop over the last few days. Patient denies abd pain, N/V, bowel changes, or other sx at this time. Patient denies any recent trauam. Differentials to consider include: UTI, clogged catheter. UA shows concern for UTI. Patients catheter is removed and he reports symptosm have completly resolved. Patient instructed to keep appointment with urology tomorrow and is provided script for cefdenir. Patient discharged in stable condition. General Adult HPI - General Chief complaint: PAIN Stated complaint: catheter pain Time Seen by Provider: 08/14/21 11:30 Mode of Arrival: Ambulatory Source of Information: Patient Limitations: No Limitations Description of Symptoms (Recal
[2021-08-14 14:31] VITALS: BP 136/72; PULSE 70; RESP 16; TEMP 36.8; O2SAT 98
== END 2021-08-14 14:33 | disposition home or self-care (01) ==
PROVIDERS: Emergency Provider Student in an Organized Health Care Education/Training Program; PCP Family Medicine
DX: N30.00 Acute cystitis without hematuria (principal); E78.5 Hyperlipidemia, unspecified; K21.9 Gastro-esophageal reflux disease without esophagitis
CPT/HCPCS: 81001; 87086; 87088; 87186; 99283

== ENCOUNTER → 2021-08-16 11:25 | Outpatient (CLI) | payer MEDICARE, BC, SELFPAY ==
[2021-08-16 11:27] LABS: MANUAL DIFFERENTIAL MANUAL DIFFERENTIAL (MANUAL DIFF)
[2021-08-16 12:11] LABS: Basophils # 0.1 K/mm3 (0-0.2); Basophils % 1.4 % (0.1-2.0); Eosinophils # 0.3 K/mm3 (0.0-0.4); Hematocrit 44.7 % (42.0-52.0); Hemoglobin 14.6 g/dL (14.1-18.0); Lymphocytes # 1.6 K/mm3 (0.7-4.5); Lymphocytes % 19.3 % (10-50); Mean Corpuscular HGB Conc 32.7 g/dL (31.8-35.4); Mean Corpuscular Hemoglobin 33.2 pg (27.0-31.2); Mean Corpuscular Volume 101.3 fl (80-94); Mean Platelet Volume 8.3 fl (7.4-10.4); Monocytes # 0.5 K/mm3 (0.1-1.0); Monocytes % 5.5 % (1.7-9.3); Neutrophils # 5.9 K/mm3 (1.8-7.8); Neutrophils % 70.8 % (37.0-80.0); Platelet Count 486 K/mm3 (142-424); Red Blood Count 4.42 M/mm3 (4.60-6.20); Red Cell Distribution Width 13.5 % (11.5-17.5); White Blood Count 8.3 K/mm3 (4.8-10.8)
[2021-08-16 13:59] LABS: Anion Gap 16.7 mEq/L (5-15); Blood Urea Nitrogen 23 mg/dl (9-20); Calcium 10.2 mg/dl (8.4-10.2); Carbon Dioxide 26 mmol/L (22.0-30.0); Chloride 100 mmol/L (98-107); Estimated Glomerular Filt Rate 48 ml/min (>60); GFR (African American) 59 ML/MIN (>60); Glucose 104 mg/dl (74-100); Potassium 4.7 mmoL/L (3.5-5.1); Sodium 138 mmol/L (136-145)
[2021-08-16 16:35] LABS: Eosinophils % 2 % (0-3); Lymphocytes % 11 % (10-50); Macrocytosis 1+; Monocytes % 4 % (2-9); Neutrophils % 78 % (42-76); Platelet Estimate Slight Increase; Total Cells Counted 100
== END ==
PROVIDERS: Visit Provider Urology
DX: R33.8 Other retention of urine (principal); Z01.812 Encounter for preprocedural laboratory examination; Z11.52 Encounter for screening for COVID-19
CPT/HCPCS: 36415; 80048; 85007; 85014; 85018; 85048; 85049; C9803; U0003; U0005

== ENCOUNTER 2021-08-19 08:31 | Day surgery (SDC) | payer MEDICARE, BC, SELFPAY ==
[2021-08-13 14:32] VITALS: BMI 20.3
[2021-08-19] VITALS (11 sets, daily range): BP systolic 146–190; BP diastolic 53–97; PULSE 66–87; RESP 12–18; TEMP 36.4–38; O2SAT 96–100
--- NOTE | 2021-08-19 10:46 | P.PN_ITS ---
[facility] Anesthesia Checklist - Structural Data Admitted From: Home Planned Operative Procedure/s: cysto Consent for Planned Operative Procedure(s) Verified: Yes - Additional verifications Anesthesia Reactions: No Hx Blood Transfusions: No Blood Transfusion Reaction: No - Airway Assessment C-Spine Mobility Assessed: Yes TMJ Mobility Assessed: Yes Dentition: Poor Dentition - Neurological Assessment Level of Consciousness: Awake, Alert, Appropriate - Anesthesia Plan Anesthesia Risk discussed: Yes Anesthesia Plan: Verified ASA Class: III Anesthesia Type: General [facility] History I have reviewed the patient's past medical history: Yes Medical History: Reports:: Cancer, Gastroesophageal Reflux Disease(GERD), Hyperlipidemia, Hypertension, Renal Disease, Urinary Tract Infection Denies:: Diabetes Mellitus Type 1, Diabetes Mellitus Type 2, Internal Pacemaker, MRSA, Seizures *Have you ever received a pneumonia vaccine?: Yes *Have you received a flu vaccine this season?: Yes Other Medical History: Reports: Arthritis, Chemotherapy, Other. Denies: Blood Transfusion Reaction Anesthesia experience/problems:: none Other Surgeries: Yes: No Previous Surgery, Cancer Surgery, Colonoscopy, Colon Resection, Colostomy, Hernia Repair, Skin Cancer Excision. No: Pacemaker Amputation: No Fractures: Yes (left hand, pinky finger) - *Social History Last grade of school completed: High school graduate Smoking Status: Never smoker Alcohol Intake: never Alcohol Intake Frequency:: 0-2 drinks per day Substance Use Type: denies use *Occupational Status:: retired Housing: house Household Members: spouse *Travel in the last 8 weeks: None Family Hx:: Cancer
--- NOTE | 2021-08-19 11:14 | P.PN_ITS ---
[facility] Anesthesia Record Part I Intake, IV Amount: 500 Estimated blood loss (mL): 0 Urine output (mL): 0 Blood Pressure: 155/53 SaO2: 96 Pulse Rate: 66 Respiratory Rate: 12 Temperature: 98.1 F Patient is:: Awake, Stable Stable to PACU at:: 11:10
--- NOTE | 2021-08-19 11:22 | SUR.PHASEI ---
1115 dr delgado at bedside, red urine in drainage bag, no clots, adequately draining, per dr delgado does not need irrigation at this time, color OK and should improve . No orders at this time
--- NOTE | 2021-08-19 12:19 | SUR.PHASEII ---
UPPER LIP IS BLEEDING, SMALL CRACK NOTED TO UPPER LEFT SIDE OF TOP LIP. COOL CLOTH APPLIED, PT DOES WINCE WHEN TOUCHED. NO C/O.
--- NOTE | 2021-08-19 12:52 | HMH.OPNOTE ---
Date of procedure: 08/19/21 Pre-op Diagnosis:: Urinary retention/frequency, urgency Post-op Diagnosis:: BPH with friable prostatic mucosa/urgency, frequency Procedure performed:: Cystoscopy with fulguration of prostate Surgeon:: Samuel Adam MD MRP CONTROLLER:: Alexis Salinas Anesthesia: LMA Estimated blood loss (mL): 2 Clinical Note:: 85-year-old white female with several month history of irritable voiding symptoms also has had issues with urinary retention presents for cystoscopic evaluation. Operative findings:: Bladder shows moderate trabeculation and minor cellule formation/there is trilobar hyperplasia/there is prostate bleeding from instrumentation indicating prostate friability. Operative note:: Patient taken to the operating suite after informed consent was obtained. Was placed on the operating room table in the supine position and general anesthesia administered. Preoperative antibiotics and sequential compression devices placed. His indwelling Mata catheter was removed. He was then placed into the dorsal lithotomy position and prepped and draped in the standard surgical fashion. A 22 R[place]an cystoscope passed into the urethra in the past to the prostatic urethra which showed some by lobar hyperplasia. Bladder was entered and examined in a systematic fashion. There was some moderate trabeculation present along the floor the bladder and few cellules present as well. The ureteral orifices were in their normal anatomic position with clear efflux of urine. Small median lobe was noted. Examination of the prostate and showed easy friability and enlargement. A Bugbee electrode was placed through the scope and the prostate fulgurated at some bleeding areas. Scope then removed and a 16 Rwandan Mata catheter was replaced. Patient tolerated procedure well without complications. Condition: stable Disposition: PACU Specimens:: None Complications:: None
--- NOTE | 2021-08-19 13:29 | SUR.OPER ---
Pt arrived for procedure with indwelling urinary catheter. RN removed urinary catheter prior to prepping pt for procedure. Upon completion of procedure, Dr. Adam inserted a 16F ritter with 10mL water filled balloon.
--- NOTE | 2021-08-21 19:55 | HMH.ANESII ---
[facility] Anesthesia Record Part II Discharge Time: 11:42 Destination: home PACU nurse assessment reviewed?: Yes Patient Condition:: Good Anesthesia Complications:: None none Swallowing reflex intact?: Yes Cyanosis?: No Blood Pressure: 164/95 Pulse Rate: 71 Temperature: 98.1 F Mental Status: Alert & Oriented Pain level:: 0 Nausea and/or vomitting:: None Intake, IV Amount: 0
[2021-08-21 19:56] VITALS: BP 164/95; PULSE 71; TEMP 36.7
== END 2021-08-19 12:23 | disposition home or self-care (01) ==
LOC: OR 08:33
PROVIDERS: PCP Family Medicine; Visit Provider Urology
PROC: 0TBB8ZX Excision of Bladder, Via Natural or Artificial Opening Endoscopic, Diagnostic (ICD-10-PCS; CPT 52204; principal; 2021-08-19 10:30)
DX: N40.1 Benign prostatic hyperplasia with lower urinary tract symptoms (principal); R33.8 Other retention of urine; R35.0 Frequency of micturition; K21.9 Gastro-esophageal reflux disease without esophagitis; E78.5 Hyperlipidemia, unspecified; I10 Essential (primary) hypertension; N28.9 Disorder of kidney and ureter, unspecified; Z85.828 Personal history of other malignant neoplasm of skin; Z87.440 Personal history of urinary (tract) infections; M19.90 Unspecified osteoarthritis, unspecified site; Z80.9 Family history of malignant neoplasm, unspecified; Z79.899 Other long term (current) drug therapy
CPT/HCPCS: 52214; 96374